=== PATIENT | male | born 1975 | race Caucasian/White ===

== ENCOUNTER 2020-12-16 16:29 | Inpatient (IN) ==
--- NOTE | 2020-12-16 16:44 | Emergency Department Note ---
Impression & Plan Pulmonary embolism, DVT (deep venous thrombosis) ED Provider Note NAME: REJI HARRSION AGE: 45 SEX: M : 1975 ARRIVES VIA: Ambulance INFORMANT: Patient, ED PROVIDER(S): Tyshawn Pete DO CHIEF COMPLAINT: Leg pain HPI: The patient is a 45-year-old male who presented to the emergency department for an evaluation of leg pain. The patient has a history of venous thromboembolic disease. He is currently taking blood thinners for clots in his lungs as well as in his legs. He started having leg pain throughout the day today. He describes episodes of tingling and numbness in the left leg as well as pain. He denies having any chest pain. He denies having any nausea or vomiting. He has a history of chronic back pain and states that this is no different compared to usual. The patient is currently at [facility] for inpati ent rehab. He started telling the staff at [facility] today that he was having the symptoms. He thought he was going to be evaluated by the physician at [facility] but then was sent to the emergency department instead. The patient states his symptoms are intermittent. He currently does have numbness in the leg. He denies having any weakness in the leg. He denies having any headache. ROS: See above HPI for pertinent positives & negatives. A total of 10 systems reviewed and were otherwise negative. PAST MEDICAL HISTORY: See Below PAST SURGICAL HISTORY: See Below FAMILY HISTORY: See Below SOCIAL HISTORY: See Below HOME MEDICATIONS: See Below ALLERGIES: See Below VITALS: See Below PHYSICAL EXAMINATION: GENERAL: Patient is awake alert in no acute distress patient is resting comfortably and showing no signs of anxiety EYES: The conjunctivae are clear. The pupils are round and reactive. EARS, NOSE, MOUTH AND THROAT: The nose is without any evidence of any deformity. Mucous membranes are moist. Tongue is midline. NECK: The neck is nontender and supple. RESPIRATORY: Normal respiratory effort is noted there is no evidence of wheezing rhonchi or rales CARDIOVASCULAR: Regular rate and rhythm noted there no murmurs rubs or gallops normal S1 normal S2. GASTROINTESTINAL: The abdomen is soft. Abdomen is nontender. MUSCULOSKELETAL/EXTREMITIES: There is no evidence of gross deformity full range of motion is noted in the hips and shoulders. SKIN: Skin is warm and dry. Pulses are symmetric in both feet. NEUROLOGIC: Patient is awake alert and oriented x3 strength is symmetric patellar reflexes are 2+ bilaterally MEDICAL DECISION MAKING: The patient is a 45-year-old male who presented to the emergency department by ambulance for an evaluation of leg pain. The patient's been describing leg numbness and pain which began over the last few days. The patient has a history of DVT. He had thrombectomy in the same leg recently. The patient had some skin changes in the leg but no significant swelling. Doppler was positive for a very extensive DVT through the entire left leg. The patient does currently take oral anticoagulation for DVT as well as pulmonary embolism. He started to have low blood pressure. For this reason CT the chest was obtained. The patient was treated with IV fluids as well as IV heparin. He was reevaluated multiple times. I discussed the patient's laboratory and radiographic studies with him. I also discussed his case with the on-call [facility] hospitalist group. Th ey have agreed to evaluate the patient in the emergency department for further management and disposition. Triage Nursing notes reviewed. Prior medical records reviewed Vital Signs: reviewed and remarkable for hypotension. Differential diagnosis: DVT, musculoskeletal, infection, joint effusion, trauma, lymphedema, idiopathic, CHF, as well as other pathologies. ER treatment provided: See below Diagnostics interpreted by me: ECG: EKG was obtained in the emergency department. My interpretation is normal sinus rhythm at 82 bpm. There was no ectopy. There was no acute ST segment abnormalities noted. Poor R wave progression was noted with anterior and apical T wave inversions. No previous tracing was available. Cardiac Monitoring: An order was placed for continuous cardiac monitoring. The monitor shows a rate of 86 bpm with sinus rhythm. Laboratory studies: As stated above and show below. Imaging studies: See below Consultation(s): I discussed this case with Dr. Smith who is on-call for the [facility] hospitalist group. ED COURSE: Procedures: none PDMP:reviewed and no issues Critical Care: I have personally spent greater than 60 minutes of critical care time in the direct management of this patient. This includes bedside care, interpretation of diagnostic studies, and testing, discussion with consultants, patient, and family members, and other required patient management activities. This 60 minutes is in excess of all separately billable procedures. Past Med/Surg History Medical History (Updated 12/17/20 @ 18:05 by Tyshawn Pete DO) Chronic low back pain DVT (deep venous thrombosis) History of seizures Peripheral vascular disease Pulmonary embolism Surgical History History of hernia repair Social History Smoking Status: Former smoker Hx Alcohol Use: Yes Hx Substance Use: Yes Current Living Situation: Alone Feels Safe at Home: Yes Allergies Allergies Allergy/AdvReac Type Severity Reaction Status Date / Time No Known Allergies Allergy Unverified 12/16/20 20:28 Home Meds Home Medications Medication Instructions Recorded Confirmed acetaminophen [Tylenol] 650 mg PO Q4 PRN 12/16/20 12/16/20 apixaban [Eliquis] 5 mg PO Q12 12/16/20 12/16/20 atorvastatin 40 mg PO DAILY 12/16/20 12/16/20 clopidogrel [Plavix] 75 mg PO DAILY 12/16/20 12/16/20 docusate sodium 100 mg PO BID 12/16/20 12/16/20 duloxetine 20 mg PO DAILY 12/16/20 12/16/20 famotidine 20 mg PO DAILY 12/16/20 12/16/20 folic acid 1 mg PO DAILY 12/16/20 12/16/20 furosemide [Lasix] 20 mg PO DAILY PRN 12/16/20 12/16/20 gabapentin 300 mg PO TID 12/16/20 12/16/20 levetiracetam 500 mg PO Q12H 12/16/20 12/16/20 lidocaine [Lidoderm] 1 patch TOPICAL DAILY 12/16/20 12/16/20 magnesium hydroxide [Milk of 30 ml PO DAILY PRN 12/16/20 12/16/20 Magnesia] metoprolol succinate 25 mg PO DAILY 12/16/20 12/16/20 morphine 10 mg PO Q4H PRN 12/16/20 12/16/20 morphine 15 mg PO Q12 12/16/20 12/16/20 nicotine 1 patch TRANSDERMAL DAILY 12/16/20 12/16/20 pantoprazole 40 mg PO DAILY 12/16/20 12/16/20 polyethylene glycol 3350 [Miralax] 17 g PO DAILY PRN 12/16/20 12/16/20 sennosides-docusate sodium 1 tab-cap PO DAILY PRN 12/16/20 12/16/20 [Senokot-S] thiamine HCl (vitamin B1) 100 mg PO DAILY 12/16/20 12/16/20 Results & Data (ED) Vital Signs Vital Signs - 24 hr 12/16/20 18:30 12/16/20 19:05 12/16/20 19:06 Pulse Rate 85 98 H 92 H Pulse Rate from SpO2 Sensor 83 98 H 92 H Respiratory Rate 28 H 15 Blood Pressure 100/72 Blood Pressure Mean 81 Pulse Oximetry 98 100 100 Oxygen Delivery Method Room Air Room Air 12/16/20 19:30 12/16/20 20:00 12/16/20 20:30 Pulse Rate 94 H Pulse Rate from SpO2 Sensor 94 H 88 Respiratory Rate 26 H Blood Pressure 88/62 L Blood Pressure Mean 70 Pulse Oximetry 96 95 Oxygen Delivery Method 12/16/20 21:00 12/16/20 21:34 Pulse Rate Pulse Rate from SpO2 Sensor 90 93 H Respiratory Rate Blood Pressure 111/83 Blood Pressure Mean 92 Pulse Oximetry 98 100 Oxygen Delivery Method Room Air Home Medications Current Medication List: was personally reviewed by me Laboratory Data Attestation: I reviewed the patient's lab results. Result diagrams: 12/17/20 10:22 12/16/20 17:16 Lab Results 12/16/20 12/16/20 12/16/20 Range/Units 17:16 17:16 17:16 WBC 7.08 (4.8-10.8) K/uL RBC 4.15 L (4.7-6.1) M/uL Hgb 11.8 L (14.0-18.0) g/dL Hct 36.1 L (42-52) % MCV 87.0 (80-100) fL MCH 28.4 (25-34) pg MCHC 32.7 (32-36) g/dL RDW Std Deviation 51.2 H (36.4-46.3) fL RDW Coeff of Megan 15.9 H (11.5-14.5) % Plt Count 404 H (130-400) K/uL MPV 9.9 (7.4-10.4) fL Immature Gran % (Auto) 0.1 % Neut % (Auto) 48.6 % Lymph % (Auto) 39.1 % Sherman % (Auto) 7.1 % Eos % (Auto) 4.4 % Baso % (Auto) 0.7 % Neut # (Auto) 3.44 (1.4-6.5) K/uL Lymph # (Auto) 2.77 (1.2-3.4) K/uL Sherman # (Auto) 0.50 (0.11-0.59) K/uL Eos # (Auto) 0.31 (0-0.5) K/uL Baso # (Auto) 0.05 (0-0.2) K/uL Immature Gran # (Auto) 0.01 (0.00-0.02) K/uL PT 11.1 (9.0-12.0) Seconds INR 1.1 (0.9-1.1) APTT 28.2 (21.0-31.0) Seconds PTT Ratio 1.1 Sodium 137 (136-145) mmol/L Potassium 4.3 (3.5-5.1) mmol/L Chloride 101 (98-107) mmol/L Carbon Dioxide 32 (21-32) mmol/L Anion Gap 4.0 (3-11) BUN 19 H (7-18) mg/dl Creatinine 0.93 (0.6-1.4) mg/dl Est Cr Clr Drug Dosing 108.9 ml/min Est GFR ( Amer) 113.7 ml/min Est GFR (Non-Af Amer) 98.1 ml/min BUN/Creatinine Ratio 20.6 H (10-20) Glucose 87 (70-99) mg/dl Calcium 9.1 (8.5-10.1) mg/dl Total Bilirubin 0.4 (0.2-1) mg/dl AST 23 (15-37) U/L ALT 36 (12-78) U/L Alkaline Phosphatase 128 H (45-117) U/L Troponin I 0.606 H* (0-0.045) ng/ml Total Protein 8.3 H (6.4-8.2) gm/dl Albumin 3.3 L (3.4-5.0) gm/dl Globulin 5.0 H (2.5-4.0) gm/dl Albumin/Globulin Ratio 0.7 L (0.9-2) Lipase 166 (73-393) U/L COVID-19 Eval Order SARS-CoV-2 (PCR) (Negative) 12/16/20 12/16/20 Range/Units 19:11 19:11 WBC (4.8-10.8) K/uL RBC (4.7-6.1) M/uL Hgb (14.0-18.0) g/dL Hct (42-52) % MCV (80-100) fL MCH (25-34) pg MCHC (32-36) g/dL RDW Std Deviation (36.4-46.3) fL RDW Coeff of Megan (11.5-14.5) % Plt Count (130-400) K/uL MPV (7.4-10.4) fL Immature Gran % (Auto) % Neut % (Auto) % Lymph % (Auto) % Sherman % (Auto) % Eos % (Auto) % Baso % (Auto) % Neut # (Auto) (1.4-6.5) K/uL Lymph # (Auto) (1.2-3.4) K/uL Sherman # (Auto) (0.11-0.59) K/uL Eos # (Auto) (0-0.5) K/uL Baso # (Auto) (0-0.2) K/uL Immature Gran # (Auto) (0.00-0.02) K/uL PT (9.0-12.0) Seconds INR (0.9-1.1) APTT (21.0-31.0) Seconds PTT Ratio Sodium (136-145) mmol/L Potassium (3.5-5.1) mmol/L Chloride (98-107) mmol/L Carbon Dioxide (21-32) mmol/L Anion Gap (3-11) BUN (7-18) mg/dl Creatinine (0.6-1.4) mg/dl Est Cr Clr Drug Dosing ml/min Est GFR ( Amer) ml/min Est GFR (Non-Af Amer) ml/min BUN/Creatinine Ratio (10-20) Glucose (70-99) mg/dl Calcium (8.5-10.1) mg/dl Total Bilirubin (0.2-1) mg/dl AST (15-37) U/L ALT (12-78) U/L Alkaline Phosphatase (45-117) U/L Troponin I (0-0.045) ng/ml Total Protein (6.4-8.2) gm/dl Albumin (3.4-5.0) gm/dl Globulin (2.5-4.0) gm/dl Albumin/Globulin Ratio (0.9-2) Lipase (73-393) U/L COVID-19 Eval Order Covid19 at [facility] SARS-CoV-2 (PCR) POSITIVE A* (Negative) Administered Medications Atorvastatin Calcium (Atorvastatin 40 Mg Tab) 40 mg PO DAILY TAVO Stop: 01/16/21 08:59 Last Admin: 12/17/20 08:16 Dose: 40 mg Documented by: [id number] Clopidogrel Bisulfate (Clopidogrel Bisulfate 75 Mg Tab) 75 mg PO DAILY TAVO Stop: 01/16/21 08:59 Last Admin: 12/17/20 08:15 Dose: 75 mg Documented by: [id number] Dexamethasone (Dexamethasone 4 Mg Tab) 6 mg PO QAM TAVO Stop: 12/26/20 09:01 Last Admin: 12/17/20 09:49 Dose: 6 mg Documented by: [id number] Docusate Sodium (Docusate Sodium 100 Mg Cap) 100 mg PO BID TAVO Stop: 01/16/21 08:59 Last Admin: 12/17/20 08:15 Dose: 100 mg Documented by: [id number] Duloxetine HCl (Duloxetine Hcl 20 Mg Cap) 20 mg PO DAILY TAVO Stop: 01/16/21 08:59 Last Admin: 12/17/20 08:15 Dose: 20 mg Documented by: [id number] Famotidine (Famotidine 20 Mg Tab) 20 mg PO DAILY TAVO Stop: 01/16/21 08:59 Last Admin: 12/17/20 08:15 Dose: 20 mg Documented by: [id number] Folic Acid (Folic Acid 1 Mg Tab) 1 mg PO DAILY TAVO Stop: 01/16/21 08:59 Last Admin: 12/17/20 08:15 Dose: 1 mg Documented by: [id number] Gabapentin (Gabapentin 300 Mg Cap) 300 mg PO TID TAVO Stop: 01/16/21 08:59 Last Admin: 12/17/20 14:27 Dose: 300 mg Documented by: [id number] Admin: 12/17/20 08:15 Dose: 300 mg Documented by: [id number] Heparin Sodium/Dextrose (Heparin Sodium/Dextrose) 25,000 units in 500 mls @ 32 mls/hr IV .[id number] TAVO; Protocol Stop: 01/15/21 18:06 Last Admin: 12/17/20 12:17 Dose: 1,600 units/hr, 32 mls/hr Documented by: [id number] Cosigned by: [id number] Titration: 12/17/20 12:15 Dose: 1,600 units/hr, 32 mls/hr Documented by: [id number] Cosigned by: [id number] Titration: 12/17/20 12:14 Dose: 1,600 units/hr, 32 mls/hr Documented by: [id number] Cosigned by: [id number] Titration: 12/17/20 02:10 Dose: 1,500 units/hr, 30 mls/hr Documented by: [id number] Cosigned by: [id number] Admin: 12/16/20 19:06 Dose: 1,400 units/hr, 28 mls/hr Documented by: [id number] Cosigned by: [id number] Ceftriaxone Sodium 2,000 mg/ (Dextrose) 70 mls @ 100 mls/hr IV DAILY TAVO; Protocol Stop: 12/24/20 09:29 Last Infusion: 12/17/20 10:33 Dose: 0 mls/hr Documented by: [id number] Admin: 12/17/20 09:50 Dose: 100 mls/hr Documented by: [id number] Levetiracetam (Levetiracetam 500 Mg Tab) 500 mg PO Q12 [facility] Stop: 01/16/21 00:15 Last Admin: 12/17/20 08:15 Dose: 500 mg Documented by: [id number] Admin: 12/17/20 01:09 Dose: 500 mg Documented by: [id number] Metoprolol Succinate (Metoprolol Succ 25mg Ext Rel Tab) 25 mg PO DAILY TAVO Stop: 01/16/21 08:59 Last Admin: 12/17/20 08:16 Dose: Not Given Documented by: [id number] Miscellaneous (Remove Nicoderm Patch) 1 ea N/A QAM [facility] Stop: 01/16/21 08:59 Last Admin: 12/17/20 08:16 Dose: 1 ea Documented by: [id number] Morphine Sulfate (Morphine Sulfate Cr 15 Mg Tabcr) 15 mg PO Q12 TAVO Stop: 12/31/20 08:59 Last Admin: 12/17/20 08:15 Dose: 15 mg Documented by: [id number] Morphine Sulfate (Morphine Sulfate 2 Mg/Ml Carp) 2 mg IV Q4H PRN PRN Reason: Pain Stop: 12/31/20 00:15 Last Admin: 12/17/20 14:28 Dose: 2 mg Documented by: [id number] Admin: 12/17/20 09:49 Dose: 2 mg Documented by: [id number] Nicotine (Nicotine 14 Mg/24 Hr Patch) 14 mg TD DAILY TAVO Stop: 01/16/21 08:59 Last Admin: 12/17/20 08:16 Dose: 14 mg Documented by: [id number] Pantoprazole Sodium (Pantoprazole 40 Mg Tab) 40 mg PO DAILY TAVO Stop: 01/16/21 08:59 Last Admin: 12/17/20 08:16 Dose: 40 mg Documented by: [id number] Thiamine HCl (Thiamine Hcl 100 Mg Tab) 100 mg PO DAILY TAVO Stop: 01/16/21 08:59 Last Admin: 12/17/20 08:16 Dose: 100 mg Documented by: [id number] Discontinued Medications Azithromycin (Azithromycin 250 Mg Tab) 500 mg PO NOW ONE Stop: 12/17/20 09:00 Last Admin: 12/17/20 09:49 Dose: 500 mg Documented by: [id number] Heparin Sodium (Porcine) (Heparin Sod (Porcine) 1000 Unit/Ml) 1 units IV NOW ONE Stop: 12/16/20 18:08 Last Admin: 12/16/20 19:06 Dose: 5,000 units Documented by: [id number] Cosigned by: [id number] Heparin Sodium/Dextrose (Heparin Iv Adult Wt-Based Standard With Bolus Protocol) 1 ea IV NOW STA; Protocol Stop: 12/16/20 17:53 Last Admin: 12/16/20 19:09 Dose: 1 ea Documented by: [id number] Sodium Chloride (Nss 1000ml) 500 mls @ 999 mls/hr IV .Q31M ONE Stop: 12/16/20 18:22 Last Infusion: 12/16/20 19:40 Dose: 0 mls/hr Documented by: [id number] Admin: 12/16/20 19:09 Dose: 999 mls/hr Documented by: [id number] Sodium Chloride (Nss 1000ml) 1,000 mls @ 999 mls/hr IV .Q1H1M ONE Stop: 12/16/20 20:47 Last Infusion: 12/16/20 20:53 Dose: 0 mls/hr Documented by: [id number] Admin: 12/16/20 19:52 Dose: 999 mls/hr Documented by: [id number] Sodium Chloride (Nss 1000ml) 500 mls @ 999 mls/hr IV .Q31M ONE Stop: 12/17/20 04:01 Last Infusion: 12/17/20 04:28 Dose: 0 mls/hr Documented by: [id number] Admin: 12/17/20 03:43 Dose: 999 mls/hr Documented by: [id number] Parenteral Electrolytes (Normosol-R) 1,000 mls @ 999 mls/hr IV .Q1H1M ONE Stop: 12/17/20 10:15 Last Infusion: 12/17/20 10:54 Dose: 0 mls/hr Documented by: [id number] Admin: 12/17/20 09:50 Dose: 999 mls/hr Documented by: [id number] Ioversol (Optiray 320 125ml) 119 ml IV ONCE ONE Stop: 12/16/20 18:48 Last Admin: 12/16/20 18:48 Dose: 119 ml Documented by: [id number] Ketorolac Tromethamine (Ketorolac Tromethamine 15 Mg/Ml Vial) 15 mg IV NOW ONE Stop: 12/16/20 21:57 Last Admin: 12/16/20 22:06 Dose: 15 mg Documented by: [id number] Discharge Plan Visit Data Chief Complaint: Leg Injury/Pain ED Provider: Tyshawn Pete Discharge Problem: Pulmonary embolism, DVT (deep venous thrombosis) Patient Disposition: Admitted As Inpatient Condition: Good Discharge Instructions Interventions: ED Discharge Assessment Last Done: 12/16/20 22:58 Discharge Problem: Pulmonary embolism Qualifiers: Pulmonary embolism type: unspecified Chronicity: acute Acute cor pulmonale presence: unspecified Qualified Code(s): I26.99 - Other pulmonary embolism without acute cor pulmonale DVT (deep venous thrombosis) Qualifiers: DVT location: lower extremity Affected thrombotic vein of extremity: unspecified vein of extremity Chronicity: acute Laterality: left Qualified Code(s): I82.402 - Acute embolism and thrombosis of unspecified deep veins of left lower extremity
--- NOTE | 2020-12-16 17:19 | XRay Report ---
SINGLE VIEW CHEST CLINICAL HISTORY: Atypical chest pain. FINDINGS: 2 AP, portable, upright chest radiographs are obtained. No prior studies are available for comparison at the time of dictation. The examination is degraded by portable technique and patient ro tation. The cardiac silhouette appears enlarged. There is pulmonary vascular congestion. The patchy a irspace opacities are seen throughout both lungs. No large pleural effusion or pneumothorax is seen. The bony thorax is grossly intact. IMPRESSION: 1. The cardiac silhouette appears enlarged and there is pulmonary vascular congestion. 2. Patchy airspace opacities are seen throughout both lungs. This could represent pulmonary edema and /or multifocal pneumonia. Clinical correlation will be essential. Radiographic follow-up to resolutio n is recommended. ACT 112: Negative or not required by law. Electronically signed by: Angelo Chacko M.D. 12/16/2020 5:18 PM
[2020-12-16 17:21] LABS: Basophils # (auto) 0.05 K/uL (0-0.2); Basophils % (auto) 0.7 %; Eosinophils # (auto) 0.31 K/uL (0-0.5); Eosinophils % (auto) 4.4 %; Hematocrit (blood only) 36.1 % (42-52); Hemoglobin 11.8 g/dL (14.0-18.0); Immature Granulocytes # (auto) 0.01 K/uL (0.00-0.02); Immature Granulocytes % (auto) 0.1 %; Lymphocytes # (auto) 2.77 K/uL (1.2-3.4); Lymphocytes % (auto) 39.1 %; Mean Corpuscular Hemoglobin 28.4 pg (25-34); Mean Corpuscular Hgb Conc 32.7 g/dL (32-36); Mean Platelet Volume 9.9 fL (7.4-10.4); Monocytes % (auto) 7.1 %; Neutrophils # (auto) 3.44 K/uL (1.4-6.5); Neutrophils % (auto) 48.6 %; Platelet Count 404 K/uL (130-400); RDW Coefficient of Variation 15.9 % (11.5-14.5); RDW Standard Deviation 51.2 fL (36.4-46.3); Red Blood Count 4.15 M/uL (4.7-6.1); White Blood Count 7.08 K/uL (4.8-10.8)
[2020-12-16 17:40] LABS: Albumin Level 3.3 gm/dl (3.4-5.0); BUN Creatinine Ratio 20.6 (10-20); Calcium 9.1 mg/dl (8.5-10.1); Creatinine Clr Calc Pharmacy 108.9 ml/min; Est GFR (African American) 113.7 ml/min; Est GFR (Non-African American) 98.1 ml/min; Potassium 4.3 mmol/L (3.5-5.1)
[2020-12-16 17:44] LABS: INR 1.1 (0.9-1.1); Partial Thromboplastin Ratio 1.1; Partial Thromboplastin Time 28.2 Seconds (21.0-31.0); Prothrombin Time 11.1 Seconds (9.0-12.0)
--- NOTE | 2020-12-16 17:44 | Ultrasound Report ---
ULTRASOUND LEFT LOWER EXTREMITY VENOUS CLINICAL HISTORY: Left leg pain. COMPARISON STUDY: No priors. TECHNIQUE: Real-time, grayscale, and color Doppler sonography of the deep veins of the left lower ext remity was performed from the inguinal crease to the calf. Compression and augmentation were utilized . FINDINGS: There is occlusive deep venous thrombosis seen extending from the proximal left superficial femoral vein distally to the calf. The common femoral vein is patent and normally compressible. The greater saphenous vein and the profunda femoris vein at the junction with the common femoral vein are clear. IMPRESSION: Extensive and occlusive deep venous thrombosis is seen throughout the left lower extremit y is above. ACT 112: Negative or not required by law. Electronically signed by: Angelo Chacko M.D. 12/16/2020 5:43 PM
[2020-12-16 17:46] LABS: Albumin Globulin Ratio 0.7 (0.9-2); Bilirubin,Total 0.4 mg/dl (0.2-1); Total Protein 8.3 gm/dl (6.4-8.2); Troponin I 0.606 ng/ml (0-0.045)
[2020-12-16] MEDS ORDERED: Heparin IV Adult Wt-Based Standard WITH Bolus Protocol IV STA (17:52)
[2020-12-16] MEDS ORDERED: SODIUM CHLORIDE 0.9% 1000ML 500 ML IV ONE (17:52)
[2020-12-16] MEDS ORDERED: HEPARIN SOD (PORCINE) 1000 UNIT/ML IV ONE (18:07)
[2020-12-16] MEDS ORDERED: OPTIRAY 320 125ml IV ONE (18:47)
[2020-12-16] MEDS: HEPARIN SODIUM/DEXTROSE 25,000 UNITS/500 ML BAG IV SCH (19:06)
--- NOTE | 2020-12-16 19:38 | CT Scan Report ---
CT ANGIOGRAM OF THE CHEST CLINICAL HISTORY: Dyspnea. COMPARISON STUDY: Chest x-ray dated 12/16/2020. TECHNIQUE: Following the IV administration of 119 cc of Optiray 320, CT angiogram of the chest was pe rformed from the upper abdomen to the thoracic inlet utilizing the pulmonary embolus protocol. Images are reviewed in the axial, sagittal, and coronal planes. 3-D MIPS images are created and assessed. I V contrast was administered without complication. A dose lowering technique was utilized adhering to the principles of ALARA. CT DOSE: 739.05 mGy.cm FINDINGS: Thyroid: Imaged portions of the thyroid gland are normal in size and attenuation. Thoracic aorta: The thoracic aorta is normal in caliber and demonstrates standard 3-vessel arch anato my. The thoracic aorta is not well opacified. Pulmonary vasculature: The pulmonary trunk is normal in caliber. There is extensive thrombus within t he right lower lobe pulmonary artery. This extends into segmental and subsegmental branches. Signific ant segmental and subsegmental pulmonary emboli are seen within branches of the left upper lobe pulmo nary artery. Segmental and subsegmental pulmonary emboli are seen within branches of the left lower l obe pulmonary artery. Heart: The heart is enlarged and without pericardial effusion. A left coronary artery stent is in rolf ce. Lungs and pleural spaces: Evaluation of the lung parenchyma is significantly degraded by motion artif act. The trachea and central airways are clear. No pleural effusion is identified. There is diffuse i ntralobular septal thickening. There are foci of nodular subpleural airspace consolidation seen throu ghout both lungs. Mediastinum: There is mediastinal lymphadenopathy. Prevascular nodes measure up to 13 mm in short axi s. Francisca: There is hilar adenopathy. Hilar nodes measure up to 13 mm in short axis. Axillae: There is no axillary lymphadenopathy. Upper abdomen: Partially visualized upper abdominal viscera is within normal limits. Skeletal structures: No lytic or blastic bony lesions are seen. Advanced arthritic change is noted in the shoulders. IMPRESSION: 1. Extensive bilateral pulmonary emboli as above, greatest in the right lower lobe pulmonary artery. 2. Cardiomegaly with evidence of congestive failure. 3. There are numerous foci of nodular subpleural consolidation scattered throughout both lungs. These are indeterminant, and several likely represent pulmonary infarcts given the degree of thrombus. Cor relate clinically for evidence of an infectious/inflammatory pneumonitis. A follow-up chest [facility] is recommended to document resolution and to exclude underlying pulmonary lesion. 4. No pleural effusion is identified. 5. Mediastinal and hilar lymphadenopathy is nonspecific and may be reactive. This can also be reasses sed at follow-up. ACT 112: Positive. There are findings on this exam that require communication between the performing entity and the patient following Patient Test Result Information Act ([place] Act 112) guidelines. Electronically signed by: Angelo Chacko M.D. 12/16/2020 7:37 PM
[2020-12-16] MEDS ORDERED: SODIUM CHLORIDE 0.9% 1000ML 1,000 ML IV ONE (19:47)
--- NOTE | 2020-12-16 21:50 | History & Physical Report ---
Date of Service December 16, 2020 Assessment & Plan (1) COVID-19: Patient with positive Covid-19 test today. He denies CP, SOB, cough, fever. He reports being tested at [facility] yesterday and was NEGATIVE at that time. He is not vaccinated by choice. Adequate oxygenation on room air. CTA wtih nodular subpleural consolidations possibly secondary to Covid. -Admit to medical -Maintain isolation precuations - airborne and contact -No need for Dexamethasone or Remdesivir at this time as patient is not hypoxic -Heparin gtt as below Present on Admission?: Yes (2) Pulmonary embolism: Patient with acute bilateral PEs. HD stable. Saturating 94% on room air at present. Occurred while on Eliquis - patient reports taking his medications as prescribed. Eliquis failure. Patient with prior VTE - ?hypercoagulability -Will check Factor V, Prothrombin, Homocysteine, Protein C/S and Anti-thrombin III -Heparin gtt -Tylenol PRN pain -Morphine PRN pain -Colace PRN Present on Admission?: Yes (3) DVT (deep venous thrombosis): Acute extensive DVT of LLE while on Eliquis -Management as above - Heparin gtt, Hypercoag workup -If pain and tingling continue may consider Vascular evaluation for thrombectomy -Request records from [place] of prior hospital stay Present on Admission?: Yes (4) Elevated troponin: ?if secondary to Covid vs PE, doubt ACS. Patient does have some pleuritic chest pain with his current PEs. -Continue to trend troponin -Heparin gtt as above -Continue Plavix Present on Admission?: Yes (5) Peripheral vascular disease: Chronic. Patient states that he has stents in place -Continue Plavix, Atorvastatin Present on Admission?: Yes (6) History of seizures: Chronic. Seizure free -Continue Keppra Present on Admission?: Yes History of Present Illness Chief Complaint: LLE pain, chest pain Primary Care Provider: CYNTHIA REEVES Dmitry Puente is a 45yo male with history of prior DVT, Seizures and PE presenting with extensive LLE DVT and bilateral PEs. Patient has a history of prior DVT and PE - presently on Eliquis anticoagulation. He has been at [facility] for rehab. He developed pain and tingling in the LLE and was sent to the ER. Patient states that he had a thrombectomy performed at [place] [facility] 2 weeks ago. Has multiple clots in the past. Has IVC filter in place. No known family history of blood clots. No prior hypercoag workup to his knowledge ER Course: Heparin gtt, NSS Allergies Allergy/AdvReac Type Severity Reaction Status Date / Time No Known Allergies Allergy Unverified 12/16/20 20:28 Home Medications Medication Instructions Recorded Confirmed Type acetaminophen [Tylenol] 650 mg PO Q4 PRN 12/16/20 12/16/20 History apixaban [Eliquis] 5 mg PO Q12 12/16/20 12/16/20 History atorvastatin 40 mg PO DAILY 12/16/20 12/16/20 History clopidogrel [Plavix] 75 mg PO DAILY 12/16/20 12/16/20 History docusate sodium 100 mg PO BID 12/16/20 12/16/20 History duloxetine 20 mg PO DAILY 12/16/20 12/16/20 History famotidine 20 mg PO DAILY 12/16/20 12/16/20 History folic acid 1 mg PO DAILY 12/16/20 12/16/20 History furosemide [Lasix] 20 mg PO DAILY PRN 12/16/20 12/16/20 History gabapentin 300 mg PO TID 12/16/20 12/16/20 History levetiracetam 500 mg PO Q12H 12/16/20 12/16/20 History lidocaine [Lidoderm] 1 patch TOPICAL DAILY 12/16/20 12/16/20 History magnesium hydroxide [Milk of 30 ml PO DAILY PRN 12/16/20 12/16/20 History Magnesia] metoprolol succinate 25 mg PO DAILY 12/16/20 12/16/20 History morphine 10 mg PO Q4H PRN 12/16/20 12/16/20 History morphine 15 mg PO Q12 12/16/20 12/16/20 History nicotine 1 patch TRANSDERMAL DAILY 12/16/20 12/16/20 History pantoprazole 40 mg PO DAILY 12/16/20 12/16/20 History polyethylene glycol 3350 [Miralax] 17 g PO DAILY PRN 12/16/20 12/16/20 History sennosides-docusate sodium 1 tab-cap PO DAILY PRN 12/16/20 12/16/20 History [Senokot-S] thiamine HCl (vitamin B1) 100 mg PO DAILY 12/16/20 12/16/20 History Past Med/Surg History Medical History Chronic low back pain DVT (deep venous thrombosis) History of seizures Pulmonary embolism Surgical History History of hernia repair Social History Smoking Status: Former smoker Hx Alcohol Use: Yes Hx Substance Use: Yes Current Living Situation: Alone Feels Safe at Home: Yes Review of Systems Review of Systems: All systems reviewed & are unremarkable except as noted in HPI & below Physical Exam Physical Exam: General: patient resting comfortably, NAD, non-toxic in appearance, AA&O x 4 Skin: warm, dry, intact, no rashes or lesions HEENT: NC/AT, PERRL, EOMI, anicteric sclera, conjunctiva without injection, external ear normal to inspection and nontender, nares patent, moist mucus membranes, dentition intact, no oropharyngeal lesions, neck supple, trachea midline, no LAD, no thyromegaly, no JVD Heart: +S1/S2, regular, no m/r/g Lungs: equal air entry bilaterally, no rales/rhonchi/wheezes Abd: +BS, soft, NT/ND, no masses/organomegaly/ascites Ext: warm, 2+ pulses in UE/LE bilaterally, no clubbing/cyanosis or edema, pain in LLE Neuro: nonfocal, patient AA&O x 4, speech intact, no facial droop, moving all extremities on command with equal strength 5/5 Results & Data Results & Data ([facility]) Vital Signs (Past 12 Hours) Vital Signs Temp Pulse Resp BP Pulse Ox 12/16/20 21:00 98 12/16/20 20:30 95 12/16/20 20:00 88/62 L 12/16/20 19:30 94 H 26 H 96 12/16/20 19:06 92 H 100/72 100 12/16/20 19:05 98 H 15 100 12/16/20 18:30 85 28 H 98 12/16/20 18:00 86 101/79 100 12/16/20 17:37 86 22 92/64 L 98 12/16/20 17:00 85 19 98 12/16/20 16:37 36.8 C 83 16 112/73 97 12/16/20 16:35 81 15 98 Laboratory Results Laboratory Results WBC 7.08 K/uL (4.8-10.8) 12/16/20 17:16 RBC 4.15 M/uL (4.7-6.1) L 12/16/20 17:16 Hgb 11.8 g/dL (14.0-18.0) L 12/16/20 17:16 Hct 36.1 % (42-52) L 12/16/20 17:16 MCV 87.0 fL (80-100) 12/16/20 17:16 MCH 28.4 pg (25-34) 12/16/20 17:16 MCHC 32.7 g/dL (32-36) 12/16/20 17:16 RDW Std Deviation 51.2 fL (36.4-46.3) H 12/16/20 17:16 RDW Coeff of Megan 15.9 % (11.5-14.5) H 12/16/20 17:16 Plt Count 404 K/uL (130-400) H 12/16/20 17:16 MPV 9.9 fL (7.4-10.4) 12/16/20 17:16 Immature Gran % (Auto) 0.1 % 12/16/20 17:16 Neut % (Auto) 48.6 % 12/16/20 17:16 Lymph % (Auto) 39.1 % 12/16/20 17:16 [place] % (Auto) 7.1 % 12/16/20 17:16 Eos % (Auto) 4.4 % 12/16/20 17:16 Baso % (Auto) 0.7 % 12/16/20 17:16 Neut # (Auto) 3.44 K/uL (1.4-6.5) 12/16/20 17:16 Lymph # (Auto) 2.77 K/uL (1.2-3.4) 12/16/20 17:16 [place] # (Auto) 0.50 K/uL (0.11-0.59) 12/16/20 17:16 Eos # (Auto) 0.31 K/uL (0-0.5) 12/16/20 17:16 Baso # (Auto) 0.05 K/uL (0-0.2) 12/16/20 17:16 Immature Gran # (Auto) 0.01 K/uL (0.00-0.02) 12/16/20 17:16 PT 11.1 Seconds (9.0-12.0) 12/16/20 17:16 INR 1.1 (0.9-1.1) 12/16/20 17:16 APTT 45.3 Seconds (21.0-31.0) H* 12/17/20 01:19 PTT Ratio 1.7 12/17/20 01:19 Sodium 137 mmol/L (136-145) 12/16/20 17:16 Potassium 4.3 mmol/L (3.5-5.1) 12/16/20 17:16 Chloride 101 mmol/L (98-107) 12/16/20 17:16 Carbon Dioxide 32 mmol/L (21-32) 12/16/20 17:16 Anion Gap 4.0 (3-11) 12/16/20 17:16 BUN 19 mg/dl (7-18) H 12/16/20 17:16 Creatinine 0.93 mg/dl (0.6-1.4) 12/16/20 17:16 Est Cr Clr Drug Dosing 108.9 ml/min 12/16/20 17:16 Est GFR ( Amer) 113.7 ml/min 12/16/20 17:16 Est GFR (Non-Af Amer) 98.1 ml/min 12/16/20 17:16 BUN/Creatinine Ratio 20.6 (10-20) H 12/16/20 17:16 Glucose 87 mg/dl (70-99) 12/16/20 17:16 Calcium 9.1 mg/dl (8.5-10.1) 12/16/20 17:16 Phosphorus 4.3 mg/dl (2.5-4.9) 12/17/20 01:19 Magnesium 2.0 mg/dl (1.8-2.4) 12/17/20 01:19 Total Bilirubin 0.4 mg/dl (0.2-1) 12/16/20 17:16 AST 23 U/L (15-37) 12/16/20 17:16 ALT 36 U/L (12-78) 12/16/20 17:16 Alkaline Phosphatase 128 U/L (45-117) H 12/16/20 17:16 Troponin I 0.599 ng/ml (0-0.045) H* 12/17/20 01:19 Total Protein 8.3 gm/dl (6.4-8.2) H 12/16/20 17:16 Albumin 3.3 gm/dl (3.4-5.0) L 12/16/20 17:16 Globulin 5.0 gm/dl (2.5-4.0) H 12/16/20 17:16 Albumin/Globulin Ratio 0.7 (0.9-2) L 12/16/20 17:16 Lipase 166 U/L (73-393) 12/16/20 17:16 COVID-19 Eval Order Covid19 at [facility] 12/16/20 19:11 SARS-CoV-2 (PCR) POSITIVE (Negative) A* 12/16/20 19:11 Impressions Chest X-Ray 12/16/20 16:44 SINGLE VIEW CHEST CLINICAL HISTORY: Atypical chest pain. FINDINGS: 2 AP, portable, upright chest radiographs are obtained. No prior studies are available for comparison at the time of dictation. The examination is degraded by portable technique and patient rotation. The cardiac silhouette appears enlarged. There is pulmonary vascular congestion. The patchy airspace opacities are seen throughout both lungs. No large pleural effusion or pneumothorax is seen. The bony thorax is grossly intact. IMPRESSION: 1. The cardiac silhouette appears enlarged and there is pulmonary vascular congestion. 2. Patchy airspace opacities are seen throughout both lungs. This could represent pulmonary edema and/or multifocal pneumonia. Clinical correlation will be essential. Radiographic follow-up to resolution is recommended. ACT 112: Negative or not required by law. Electronically signed by: Angelo Chacko M.D. 12/16/2020 5:18 PM Venous Doppler Study 12/16/20 16:48 ULTRASOUND LEFT LOWER EXTREMITY VENOUS CLINICAL HISTORY: Left leg pain. COMPARISON STUDY: No priors. TECHNIQUE: Real-time, grayscale, and color Doppler sonography of the deep veins of the left lower extremity was performed from the inguinal crease to the calf. Compression and augmentation were utilized. FINDINGS: There is occlusive deep venous thrombosis seen extending from the proximal left superficial femoral vein distally to the calf. The common femoral vein is patent and normally compressible. The greater saphenous vein and the profunda femoris vein at the junction with the common femoral vein are clear. IMPRESSION: Extensive and occlusive deep venous thrombosis is seen throughout the left lower extremity is above. ACT 112: Negative or not required by law. Electronically signed by: Angelo Chacko M.D. 12/16/2020 5:43 PM Chest CTA 12/16/20 17:46 CT ANGIOGRAM OF THE CHEST CLINICAL HISTORY: Dyspnea. COMPARISON STUDY: Chest x-ray dated 12/16/2020. TECHNIQUE: Following the IV administration of 119 cc of Optiray 320, CT angiogram of the chest was performed from the upper abdomen to the thoracic inlet utilizing the pulmonary embolus protocol. Images are reviewed in the axial, sagittal, and coronal planes. 3-D MIPS images are created and assessed. IV contrast was administered without complication. A dose lowering technique was utilized adhering to the principles of ALARA. CT DOSE: 739.05 mGy.cm FINDINGS: Thyroid: Imaged portions of the thyroid gland are normal in size and attenuation. Thoracic aorta: The thoracic aorta is normal in caliber and demonstrates standard 3-vessel arch anatomy. The thoracic aorta is not well opacified. Pulmonary vasculature: The pulmonary trunk is normal in caliber. There is extensive thrombus within the right lower lobe pulmonary artery. This extends into segmental and subsegmental branches. Significant segmental and subsegmental pulmonary emboli are seen within branches of the left upper lobe pulmonary artery. Segmental and subsegmental pulmonary emboli are seen within branches of the left lower lobe pulmonary artery. Heart: The heart is enlarged and without pericardial effusion. A left coronary artery stent is in place. Lungs and pleural spaces: Evaluation of the lung parenchyma is significantly degraded by motion artifact. The trachea and central airways are clear. No pleural effusion is identified. There is diffuse intralobular septal thickening. There are foci of nodular subpleural airspace consolidation seen throughout both lungs. Mediastinum: There is mediastinal lymphadenopathy. Prevascular nodes measure up to 13 mm in short axis. Francisca: There is hilar adenopathy. Hilar nodes measure up to 13 mm in short axis. Axillae: There is no axillary lymphadenopathy. Upper abdomen: Partially visualized upper abdominal viscera is within normal limits. Skeletal structures: No lytic or blastic bony lesions are seen. Advanced arthritic change is noted in the shoulders. IMPRESSION: 1. Extensive bilateral pulmonary emboli as above, greatest in the right lower lobe pulmonary artery. 2. Cardiomegaly with evidence of congestive failure. 3. There are numerous foci of nodular subpleural consolidation scattered throughout both lungs. These are indeterminant, and several likely represent pulmonary infarcts given the degree of thrombus. Correlate clinically for evidence of an infectious/inflammatory pneumonitis. A follow-up chest CT in 3 months time is recommended to document resolution and to exclude underlying pu lmonary lesion. 4. No pleural effusion is identified. 5. Mediastinal and hilar lymphadenopathy is nonspecific and may be reactive. This can also be reassessed at follow-up. ACT 112: Positive. There are findings on this exam that require communication between the performing entity and the patient following Patient Test Result Information Act ([place] Act 112) guidelines. Electronically signed by: Angelo Chacko M.D. 12/16/2020 7:37 PM ECG Additional Comments: EKG with NSR at 82, QF=382, QRS=92, GYa=076, TWI present in anterior leads, no STEMI Code Status & VTE Plan VTE Prophylaxis Plan VTE Prophylaxis will be ordered: Yes PG Care Time/CCT Total # of Minutes Spent Total Time Spent with Patient: Total time spent is greater than 50% in coordination of care (as documented) at patient's floor/unit and/or counseling patient: Coding Level of Care Code 71824 Initial Inpt Care Lvl 3 Diagnoses COVID-19 U07.1 Pulmonary embolism I26.99 Pulmonary embolism type: unspecified Chronicity: unspecified Acute cor pulmonale presence: unspecified DVT (deep venous thrombosis) I82.402 DVT location: lower extremity Affected thrombotic vein of extremity: unspecified vein of extremity Chronicity: acute Laterality: left Elevated troponin R77.8 Peripheral vascular disease I73.9 History of seizures Z87.898 (1) Pulmonary embolism Pulmonary embolism type: unspecified Chronicity: unspecified Acute cor pulmonale presence: unspecified Qualified Code(s): I26.99 - Other pulmonary embolism without acute cor pulmonale (2) DVT (deep venous thrombosis) DVT location: lower extremity Affected thrombotic vein of extremity: unspecified vein of extremity Chronicity: acute Laterality: left Qualified Code(s): I82.402 - Acute embolism and thrombosis of unspecified deep veins of left lower extremity
[2020-12-16] MEDS ORDERED: KETOROLAC TROMETHAMINE 15 MG/ML VIAL IV ONE (21:56)
[2020-12-17] MEDS ORDERED: ACETAMINOPHEN 325 MG TAB PO PRN (00:16)
[2020-12-17] MEDS ORDERED: ONDANSETRON INJ 2 MG/ML 2 ML VIAL IV PRN (00:16)
[2020-12-17] MEDS: levETIRAcetam 500 MG TAB PO SCH ×3 (01:09→19:35)
[2020-12-17 01:56] LABS: Partial Thromboplastin Ratio 1.7
[2020-12-17 02:01] LABS: Partial Thromboplastin Time 45.3 Seconds (21.0-31.0)
[2020-12-17 02:04] LABS: Phosphorus 4.3 mg/dl (2.5-4.9); Troponin I 0.599 ng/ml (0-0.045)
[2020-12-17] MEDS ORDERED: SODIUM CHLORIDE 0.9% 1000ML 500 ML IV ONE (03:31)
[2020-12-17] MEDS: FOLIC ACID 1 MG TAB PO SCH (08:15)
[2020-12-17] MEDS: FAMOTIDINE 20 MG TAB PO SCH (08:15)
[2020-12-17] MEDS: DOCUSATE SODIUM 100 MG CAP PO SCH ×2 (08:15→19:35)
[2020-12-17] MEDS: CLOPIDOGREL BISULFATE 75 MG TAB PO SCH (08:15)
[2020-12-17] MEDS: GABAPENTIN 300 MG CAP PO SCH ×3 (08:15→19:35)
[2020-12-17] MEDS: MoRPHine SULFATE CR 15 MG TABCR PO SCH ×2 (08:15→19:31)
[2020-12-17] MEDS: DULoxetine HCL 20 MG CAP PO SCH (08:15)
[2020-12-17] MEDS: THIAMINE HCL 100 MG TAB PO SCH (08:16)
[2020-12-17] MEDS: PANTOprazole 40 MG TAB PO SCH (08:16)
[2020-12-17] MEDS: ATORVASTATIN 40 MG TAB PO SCH (08:16)
[2020-12-17] MEDS: METOPROLOL SUCC 25MG EXT REL TAB PO SCH (08:16)
[2020-12-17] MEDS: NICOTINE 14 MG/24 HR PATCH TD SCH (08:16)
--- NOTE | 2020-12-17 08:37 | Pulmonary Consultation ---
Date of Consultation December 17, 2020 Assessment & Plan (1) Pulmonary embolism: CT chest 12/16/2020 personally reviewed: Dense patchy opacities appreciated in bilateral upper lobes peripherally as well as right lower lobe. Pulmonary embolus is also appreciated bilateral lower more than the right lower pulmonary artery. Possible wedge infarct right lower lobe No right heart strain appreciated Groundglass opacities also appreciated bilaterally No mediastinal adenopathy --Acute PE Patient already has an IVC filter in place In a patient who was on apixaban and states that he is compliant with it I think this is failure of apixaban Patient is also COVID-19 positive which is also hypercoagulable state on top of the I think the next best step would be to have the patient on warfarin Hematology consult would be helpful to get their opinion 2D echo can be done to look at the right heart pressures, I personally did not see right heart strain on the CT chest Patient is not a candidate for systemic TPA --Patchy dense opacities bilateral upper and lower lobes Unusual to be seen in COVID-19 Right lower lobe could be from wedge infarct Recommend continuing antibiotics --COVID-19 pneumonia Patient was not hypoxic at the time of presentation If the patient does have developed hypoxia during the hospital stay I would recommend starting dexamethasone --Transient hypotension It seems patient most likely has low blood pressure to begin with He does not have any DAVID He does not have any symptoms when his blood pressure is on the lower side Recommend cortisol level Plan: Continue with heparin drip with bridge to warfarin O2 supplementation to keep oxygen saturation greater than 92 Continue with antibiotics Case was discussed with Brayden BORRERO and Dr. Beverly Pulmonary will follow peripherally. Please call directly with any questions. Please note the above document was generated using voice recognition software. It may contain grammatical, syntax or spelling errors.Any formal questions or concerns about the content, text or information contained within the body of this dictation should be directly addressed to the provider for clarification. Acute cor pulmonale presence: unspecified Chronicity: unspecified Pulmonary embolism type: unspecified Qualified Code(s): I26.99 - Other pulmonary embolism without acute cor pulmonale (2) DVT (deep venous thrombosis): Affected thrombotic vein of extremity: unspecified vein of extremity Chronicity: acute DVT location: lower extremity Laterality: left Qualified Code(s): I82.402 - Acute embolism and thrombosis of unspecified deep veins of left lower extremity (3) COVID-19: (4) Abnormal chest CT: History of Present Illness Attending Physician: Jas Beverly MD History of Present Illness 45-year-old male past medical history of DVT s/p IVC filter placement, coronary artery disease was admitted to the hospital because of tingling in the left lowe r extremity and pain. He was found to have acute PE and DVT Patient is on Eliquis for anticoagulation Pulmonary consulted for same Patient was in [facility] for rehab. He recently had a thrombectomy performed at [facility] approximately 2 weeks ago Patient was seen from the glass window. He was on the bed comfortable heart rate in the low 90s. Blood pressure 105/65. Not in acute distress As per the nurse patient saturation on room air is 96%. He prefers oxygen as he feels that it is helping his chest discomfort. Brief history was given to me by Dr. Beverly. History obtained from previous records and H&P. Allergies Allergy/AdvReac Type Severity Reaction Status Date / Time No Known Allergies Allergy Unverified 12/16/20 20:28 Home Medications Medication Instructions Recorded Confirmed Type acetaminophen [Tylenol] 650 mg PO Q4 PRN 12/16/20 12/16/20 History apixaban [Eliquis] 5 mg PO Q12 12/16/20 12/16/20 History atorvastatin 40 mg PO DAILY 12/16/20 12/16/20 History clopidogrel [Plavix] 75 mg PO DAILY 12/16/20 12/16/20 History docusate sodium 100 mg PO BID 12/16/20 12/16/20 History duloxetine 20 mg PO DAILY 12/16/20 12/16/20 History famotidine 20 mg PO DAILY 12/16/20 12/16/20 History folic acid 1 mg PO DAILY 12/16/20 12/16/20 History furosemide [Lasix] 20 mg PO DAILY PRN 12/16/20 12/16/20 History gabapentin 300 mg PO TID 12/16/20 12/16/20 History levetiracetam 500 mg PO Q12H 12/16/20 12/16/20 History lidocaine [Lidoderm] 1 patch TOPICAL DAILY 12/16/20 12/16/20 History magnesium hydroxide [Milk of 30 ml PO DAILY PRN 12/16/20 12/16/20 History Magnesia] metoprolol succinate 25 mg PO DAILY 12/16/20 12/16/20 History morphine 10 mg PO Q4H PRN 12/16/20 12/16/20 History morphine 15 mg PO Q12 12/16/20 12/16/20 History nicotine 1 patch TRANSDERMAL DAILY 12/16/20 12/16/20 History pantoprazole 40 mg PO DAILY 12/16/20 12/16/20 History polyethylene glycol 3350 [Miralax] 17 g PO DAILY PRN 12/16/20 12/16/20 History sennosides-docusate sodium 1 tab-cap PO DAILY PRN 12/16/20 12/16/20 History [Senokot-S] thiamine HCl (vitamin B1) 100 mg PO DAILY 12/16/20 12/16/20 History Patient History Medical History (Updated 12/17/20 @ 12:28 by Jas Beverly MD) Chronic low back pain DVT (deep venous thrombosis) History of seizures Peripheral vascular disease Pulmonary embolism Surgical History History of hernia repair Social History Smoking Status: Former smoker Hx Alcohol Use: Yes Hx Substance Use: Yes Current Living Situation: Alone Feels Safe at Home: Yes Review of Systems Review of Systems: Other Physical Exam Physical Exam: Patient not examined due to coronavirus restrictions and attem pts to minimize exposure to staff and consider PPE. Please refer to the hospitalist exam for complete details. Results & Data Results & Data ([facility]) Vital Signs (Past 12 Hours) Vital Signs Temp Pulse Resp BP BP Pulse Ox 12/17/20 07:31 36.5 C 83 18 90/60 L 96 12/17/20 03:34 37.1 C 73 18 87/64 L 91 12/17/20 00:25 36.5 C 16 103/71 94 12/16/20 23:00 108/74 95 12/16/20 22:30 95 12/16/20 22:00 109/85 96 12/16/20 21:34 111/83 100 12/16/20 21:00 98 12/16/20 17:16 12/16/20 17:16 PG Care Time/CCT Total # of Minutes Spent Total Time Spent with Patient: Total time spent is greater than 50% in coordination of care (as documented) at patient's floor/unit and/or counseling patient: Coding Level of Care Code 73606 Inpt Consult Level 3 Diagnoses Pulmonary embolism I26.99 Acute cor pulmonale presence: unspecified Chronicity: unspecified Pulmonary embolism type: unspecified DVT (deep venous thrombosis) I82.402 Affected thrombotic vein of extremity: unspecified vein of extremity Chronicity: acute DVT location: lower extremity Laterality: left COVID-[address] R93.89 Time Spent (min) 71
[2020-12-17] MEDS ORDERED: AZITHROMYCIN 250 MG TAB PO ONE (08:59)
[2020-12-17] MEDS ORDERED: NORMOSOL-R 1,000 ML IV ONE (09:15)
[2020-12-17] MEDS: MoRPHine SULFATE 2 MG/ML CARP IV PRN ×3 (09:49→19:30)
[2020-12-17] MEDS: dexAMETHasone 4 MG TAB PO SCH (09:49)
[2020-12-17] MEDS: cefTRIAXone SODIUM 2,000 MG in DEXTROSE 5% 50 ML IV SCH (09:50)
[2020-12-17 10:49] LABS: Basophils # (auto) 0.03 K/uL (0-0.2); Basophils % (auto) 0.5 %; Eosinophils % (auto) 3.1 %; Hematocrit (blood only) 34.1 % (42-52); Lymphocytes # (auto) 1.78 K/uL (1.2-3.4); Lymphocytes % (auto) 27.8 %; Mean Corpuscular Hemoglobin 27.4 pg (25-34); Mean Corpuscular Hgb Conc 32.3 g/dL (32-36); Mean Corpuscular Volume 84.8 fL (80-100); Monocytes # (auto) 0.31 K/uL (0.11-0.59); Monocytes % (auto) 4.8 %; Neutrophils # (auto) 4.08 K/uL (1.4-6.5); Neutrophils % (auto) 63.8 %; Platelet Count 357 K/uL (130-400); RDW Coefficient of Variation 16.1 % (11.5-14.5); RDW Standard Deviation 49.6 fL (36.4-46.3); Red Blood Count 4.02 M/uL (4.7-6.1)
[2020-12-17 11:00] LABS: Partial Thromboplastin Ratio 1.7; Partial Thromboplastin Time 44.4 Seconds (21.0-31.0)
[2020-12-17 11:51] LABS: Bilirubin Direct 0.2 mg/dl (0-0.2); Bilirubin,Total 0.5 mg/dl (0.2-1); Total Protein 7.4 gm/dl (6.4-8.2); Troponin I 0.598 ng/ml (0-0.045)
[2020-12-17] MEDS: HEPARIN SODIUM/DEXTROSE 25,000 UNITS/500 ML BAG IV SCH (12:17)
--- NOTE | 2020-12-17 12:31 | Hospitalist Progress Note ---
Date of Service December 17, 2020 Assessment & Plan (1) Pulmonary embolism: Patient with acute bilateral PEs. Occurred while on Eliquis - patient reports taking his medications as prescribed. Some evidence of right heart strain with elevated troponins and BNP; however, also has significant cardiom yopathy, so this is confounding. - Follow results of Factor V, Prothrombin, Homocysteine, Protein C/S and Anti- thrombin III - Continue heparin gtt - Start warfarin - Pain control - Discussed with pulmonology today who felt current management was appropriate; no indication for thrombolysis or thrombectomy. (2) COVID-19: Patient with positive PCR Covid-19 test on 12/16. Last tested with PCR on 12/09 and was NEGATIVE. Negative antigen test on 12/15. He is not vaccinated. CTA wtih nodular subpleural consolidations possibly secondary to Covid. - Considered true, active infection -> Maintain isolation precautions - Given his hypoxemia on 12/16, started dexamethasone 6 mg PO x 10 days - Given overall stability, no indication for tocilizumab or remdesivir. - Added abx per pulmonology recommendation given his CT chest findings from 12/16. (3) DVT (deep venous thrombosis): Acute extensive DVT of LLE while on Eliquis seen on Doppler on 12/16. - Management as above - Requested records from [place] of prior hospital stay (4) Elevated troponin: No indication of ACS. Patient does have some pleuritic chest pain with his current PEs. - Trended troponins -> Stable at ~0.6. - Heparin gtt as above - Continue Plavix (5) Peripheral vascular disease: Chronic. Patient states that he has stents in place. - Continue Plavix, atorvastatin (6) History of seizures: Chronic. Seizure-free presently. - Continue Keppra (7) Cardiomyopathy: Reduced EF. Patient reports this is chronic, but no records in our system. Presumed ischemic cardiomyopathy given hx of coronary stent(s). - Continue beta-deb, - Monitor weights, careful with IV fluids, monitor I&Os (8) DVT prophylaxis: On heparin gtt for PE Admission and Anticipated Discharge Date Admission Date: December 16, 2020 Subjective Doing ok today. Chest is still very sore. Reports no fevers/chills, shortness of breath, abdominal pain, nausea, or vomiting. Physical Exam Constitutional: WD/WN, vitals as above + acute distress Eyes: EOM intact bilaterally; no conjunctival abnormality ENMT: external ear and nose normal, oropharynx normal Neck: trachea midline, no thyromegaly normal visual inspection Respiratory: normal respiratory effort, lungs clear to auscultation no respiratory distress Cardiovascular: RRR, no murmur, no edema Gastrointestinal (Abdomen): Inspection/Auscultation: abdomen normal to inspection; abdomen not distended Musculoskeletal: no cyanosis or clubbing, extremities motor strength 5/5 Skin: no rashes, warm and dry Neurologic: moves all extremities and awake Psychiatric: Orientation: alert, oriented to person and cooperative Results & Data Results & Data ([facility]) Vital Signs (Past 12 Hours) Vital Signs Temp Pulse Pulse Resp BP Pulse Ox 12/17/20 11:20 36.5 C 84 18 105/65 97 12/17/20 10:21 94 H 12/17/20 07:31 36.5 C 83 18 90/60 L 96 12/17/20 03:34 37.1 C 73 18 87/64 L 91 12/17/20 00:25 36.5 C 16 103/71 94 PG Care Time/CCT Total # of Minutes Spent Total Time Spent with Patient: Total time spent is greater than 50% in coordination of care (as documented) at patient's floor/unit and/or counseling patient: Coding Level of Care Code 71693 Subseq Hosp Care Lvl 3 Diagnoses Pulmonary embolism I26.99 Pulmonary embolism type: unspecified Chronicity: unspecified Acute cor pulmonale presence: unspecified COVID-19 U07.1 DVT (deep venous thrombosis) I82.402 DVT location: lower extremity Affected thrombotic vein of extremity: unspecified vein of extremity Chronicity: acute Laterality: left Elevated troponin R77.8 Peripheral vascular disease I73.9 History of seizures Z87.898 Cardiomyopathy I42.9 DVT prophylaxis Z29.9 (1) Pulmonary embolism Pulmonary embolism type: unspecified Chronicity: unspecified Acute cor pulmonale presence: unspecified Qualified Code(s): I26.99 - Other pulmonary embolism without acute cor pulmonale (2) DVT (deep venous thrombosis) DVT location: lower extremity Affected thrombotic vein of extremity: unspecified vein of extremity Chronicity: acute Laterality: left Qualified Code(s): I82.402 - Acute embolism and thrombosis of unspecified deep veins of left lower extremity
[2020-12-17] MEDS: WARFARIN SOD 5 MG TAB PO SCH (16:20)
[2020-12-17 20:12] LABS: Partial Thromboplastin Ratio 1.6
--- NOTE | 2020-12-17 22:30 | XCELERA ---
[id number]
[2020-12-18] MEDS: MoRPHine SULFATE 2 MG/ML CARP IV PRN ×3 (00:18→10:31)
[2020-12-18 03:22] LABS: Hematocrit (blood only) 30.7 % (42-52); Mean Corpuscular Hemoglobin 27.1 pg (25-34); Mean Corpuscular Hgb Conc 32.6 g/dL (32-36); Mean Corpuscular Volume 83.2 fL (80-100); Mean Platelet Volume 9.9 fL (7.4-10.4); Platelet Count 340 K/uL (130-400); RDW Coefficient of Variation 15.7 % (11.5-14.5); RDW Standard Deviation 48.5 fL (36.4-46.3); Red Blood Count 3.69 M/uL (4.7-6.1); White Blood Count 10.38 K/uL (4.8-10.8)
[2020-12-18 03:42] LABS: Albumin Level 2.9 gm/dl (3.4-5.0); BUN Creatinine Ratio 20.5 (10-20); Calcium 8.8 mg/dl (8.5-10.1); Creatinine Clr Calc Pharmacy 126.6 ml/min; Est GFR (African American) 124.2 ml/min; Est GFR (Non-African American) 107.1 ml/min; Potassium 4.1 mmol/L (3.5-5.1)
[2020-12-18 03:45] LABS: Albumin Globulin Ratio 0.7 (0.9-2); Bilirubin,Total 0.4 mg/dl (0.2-1); Globulin 4.2 gm/dl (2.5-4.0); INR 1.1 (0.9-1.1); Partial Thromboplastin Ratio 1.9; Phosphorus 4.3 mg/dl (2.5-4.9); Prothrombin Time 11.3 Seconds (9.0-12.0); Total Protein 7.1 gm/dl (6.4-8.2)
[2020-12-18 03:46] LABS: Partial Thromboplastin Time 49.9 Seconds (21.0-31.0)
[2020-12-18] MEDS: HEPARIN SODIUM/DEXTROSE 25,000 UNITS/500 ML BAG IV SCH ×3 (04:05→17:59)
--- NOTE | 2020-12-18 05:47 | Electrocardiogram Report ---
Test Reason : Blood Pressure : / mmHG Vent. Rate : 082 BPM Atrial Rate : 082 BPM P-R Int : 160 ms QRS Dur : 092 ms QT Int : 400 ms P-R-T Axes : 053 -07 108 degrees QTc Int : 467 ms Normal sinus rhythm Possible Left atrial enlargement Anterior infarct T wave abnormality, consider anterior ischemia Abnormal ECG No previous ECGs available Confirmed by Jacques Mcbride ([id number]) on 12/18/2020 5:47:18 AM Referred By: REFERRED SELF Confirmed By:Jacques Mcbride
[2020-12-18] MEDS: MoRPHine SULFATE CR 15 MG TABCR PO SCH ×2 (09:22→20:03)
[2020-12-18] MEDS: DOCUSATE SODIUM 100 MG CAP PO SCH ×2 (09:23→20:03)
[2020-12-18] MEDS: GABAPENTIN 300 MG CAP PO SCH ×3 (09:23→20:04)
[2020-12-18] MEDS: levETIRAcetam 500 MG TAB PO SCH ×2 (09:23→20:03)
[2020-12-18] MEDS: DULoxetine HCL 20 MG CAP PO SCH (09:24)
[2020-12-18] MEDS: METOPROLOL SUCC 25MG EXT REL TAB PO SCH (09:24)
[2020-12-18] MEDS: FOLIC ACID 1 MG TAB PO SCH (09:24)
[2020-12-18] MEDS: PANTOprazole 40 MG TAB PO SCH (09:25)
[2020-12-18] MEDS: FAMOTIDINE 20 MG TAB PO SCH (09:25)
[2020-12-18] MEDS: AZITHROMYCIN 250 MG TAB PO SCH (09:25)
[2020-12-18] MEDS: THIAMINE HCL 100 MG TAB PO SCH (09:26)
[2020-12-18] MEDS: dexAMETHasone 4 MG TAB PO SCH (09:26)
[2020-12-18] MEDS: CLOPIDOGREL BISULFATE 75 MG TAB PO SCH (09:26)
[2020-12-18] MEDS: ATORVASTATIN 40 MG TAB PO SCH (09:27)
[2020-12-18] MEDS: NICOTINE 14 MG/24 HR PATCH TD SCH (09:28)
[2020-12-18] MEDS: cefTRIAXone SODIUM 2,000 MG in DEXTROSE 5% 50 ML IV SCH (10:33)
--- NOTE | 2020-12-18 13:34 | Hospitalist Progress Note ---
Date of Service December 18, 2020 Assessment & Plan (1) Pulmonary embolism: Patient with acute bilateral PEs. Occurred while on Eliquis - patient reports taking his medications as prescribed. Some evidence of right heart strain with elevated troponins and BNP; however, also has significant cardiom yopathy, so this is confounding. - Follow results of Factor V, Prothrombin, Homocysteine, Protein C/S and Anti- thrombin III - Continue heparin gtt - Start warfarin - Pain control - Discussed with pulmonology today who felt current management was appropriate; no indication for thrombolysis or thrombectomy. - Discussed with vascular on 12/18 -> Given ongoing numbness of left leg, will have them weigh in on thrombectomy, though inital thought was that it was probably not. - Will consult hematology for their thoughts. - Obtaining records from [facility] and [place] as well. (2) COVID-19: Patient with positive PCR Covid-19 test on 12/16. Last tested with PCR on 12/09 and was NEGATIVE. Negative antigen test on 12/15. He is not vaccinated. CTA wtih nodular subpleural consolidations possibly secondary to Covid. - Considered true, active infection -> Maintain isolation precautions - Given his hypoxemia on 12/16, started dexamethasone 6 mg PO x 10 days - STOPPED dexamethasone after 2 doses. The patient is actually not hypoxemi - Given overall stability, no indication for tocilizumab or remdesivir. - Added abx per pulmonology recommendation given his CT chest findings from 12/16. (3) DVT (deep venous thrombosis): Acute extensive DVT of LLE while on Eliquis seen on Doppler on 12/16. - Management as above - Requested records from [place] of prior hospital stay (4) Elevated troponin: No indication of ACS. Patient does have some pleuritic chest pain with his current PEs. - Trended troponins -> Stable at ~0.6. - Heparin gtt as above - Continue Plavix (5) Peripheral vascular disease: Chronic. Patient states that he has stents in place. - Continue Plavix, atorvastatin (6) History of seizures: Chronic. Seizure-free presently. - Continue Keppra (7) Cardiomyopathy: Reduced EF. Patient reports this is chronic, but no records in our system. Presumed ischemic cardiomyopathy given hx of coronary stent(s). - Continue beta-deb, statin - Monitor weights, careful with IV fluids, monitor I&Os - Appears euvolemic today. (8) DVT prophylaxis: On heparin gtt for PE Admission and Anticipated Discharge Date Admission Date: December 16, 2020 Subjective With ongoing pain in the left thigh area. Some chest pain that is doing some better with the morphine. Reports no fevers/chills, shortness of breath, abdominal pain, nausea, or vomiting. Physical Exam Constitutional: WD/WN, vitals as above Eyes: EOM intact bilaterally; no conjunctival abnormality ENMT: external ear and nose normal, oropharynx normal Neck: trachea midline, no thyromegaly normal visual inspection Respiratory: normal respiratory effort, lungs clear to auscultation no respiratory distress Cardiovascular: RRR, no murmur, no edema Gastrointestinal (Abdomen): Inspection/Auscultation: abdomen normal to inspection; abdomen not distended Musculoskeletal: no cyanosis or clubbing, extremities motor strength 5/5 Skin: no rashes, warm and dry Neurologic: moves all extremities and awake Motor/Sensory: + sensory deficit (Reports numbness to light touch on the left thigh circumferentially) Psychiatric: Orientation: alert, oriented to person and cooperative Results & Data Results & Data ([facility]) Vital Signs (Past 12 Hours) Vital Signs Temp Pulse Pulse Resp BP Pulse Ox 12/18/20 11:00 36.8 C 91 H 16 95 12/18/20 08:00 36.7 C 94 H 18 118/84 97 12/18/20 07:16 91 H PG Care Time/CCT Total # of Minutes Spent Total Time Spent with Patient: Total time spent is greater than 50% in coordination of care (as documented) at patient's floor/unit and/or counseling patient: Coding Level of Care Code 14038 Subseq Hosp Care Lvl 3 Diagnoses Pulmonary embolism I26.99 Pulmonary embolism type: unspecified Chronicity: acute Acute cor pulmonale presence: unspecified COVID-19 U07.1 DVT (deep venous thrombosis) I82.402 DVT location: lower extremity Affected thrombotic vein of extremity: unspecified vein of extremity Chronicity: acute Laterality: left Elevated troponin R77.8 Peripheral vascular disease I73.9 History of seizures Z87.898 Cardiomyopathy I42.9 DVT prophylaxis Z29.9 (1) Pulmonary embolism Pulmonary embolism type: unspecified Chronicity: acute Acute cor pulmonale presence: unspecified Qualified Code(s): I26.99 - Other pulmonary embolism without acute cor pulmonale (2) DVT (deep venous thrombosis) DVT location: lower extremity Affected thrombotic vein of extremity: unspecified vein of extremity Chronicity: acute Laterality: left Qualified Code(s): I82.402 - Acute embolism and thrombosis of unspecified deep veins of left lower extremity
--- NOTE | 2020-12-18 14:45 | Pulmonology Progress Note ---
Date of Service December 18, 2020 Assessment & Plan (1) Pulmonary embolism: CT chest 12/16/2020 personally reviewed: Dense patchy opacities appreciated in bilateral upper lobes peripherally as well as right lower lobe. Pulmonary embolus is also appreciated bilateral lower more than the right lower pulmonary artery. Possible wedge infarct right lower lobe No right heart strain appreciated Groundglass opacities also appreciated bilaterally No mediastinal adenopathy --Acute PE Patient already has an IVC filter in place In a patient who was on apixaban and states that he is compliant with it I think this is failure of apixaban Patient is also COVID-19 positive which is also hypercoagulable state on top of the I think the next best step would be to have the patient on warfarin Hematology consult would be helpful to get their opinion I personally did not see right heart strain on the CT chest Patient is not a candidate for systemic TPA --Patchy dense opacities bilateral upper and lower lobes Unusual to be seen in COVID-19 Right lower lobe could be from wedge infarct Recommend continuing antibiotics --COVID-19 pneumonia Patient was not hypoxic at the time of presentation Given the EF of only 20-25% I think the patient's hypoxia is coming more from fluid overload rather than COVID-19 pneumonia --Transient hypotension It seems patient most likely has low blood pressure to begin with He does not have any DAVID He does not have any symptoms when his blood pressure is on the lower side Recommend cortisol level Plan: Continue with heparin drip with bridge to warfarin O2 supplementation to keep oxygen saturation greater than 90 Continue with diuretics. Continue with antibiotics for total of 5 days No further recommendations from pulmonary perspective. Call directly with any questions. Please note the above document was generated using voice recognition software. It may contain grammatical, syntax or spelling errors.Any formal questions or concerns about the content, text or information contained within the body of this dictation should be directly addressed to the provider for clarification. Pulmonary embolism type: unspecified Chronicity: acute Acute cor pulmonale presence: unspecified Qualified Code(s): I26.99 - Other pulmonary embolism without acute cor pulmonale (2) DVT (deep venous thrombosis): DVT location: lower extremity Affected thrombotic vein of extremity: unspecified vein of extremity Chronicity: acute Laterality: left Qualified Code(s): I82.402 - Acute embolism and thrombosis of unspecified deep veins of left lower extremity (3) COVID-19: (4) Abnormal chest CT: Admission and Anticipated Discharge Date Admission Date: December 16, 2020 Subjective Patient seen and examined through the glass window. Not in any acute distress. Saturating 96% on nasal cannula. Case discussed with ADAIR Saavedra Review of Systems Review of Systems: Other Physical Exam Physical Exam: Patient not examined due to coronavirus restrictions and attempts to minimize exposure to staff and consider PPE. Please refer to the hospitalist exam for complete details. Results & Data Results & Data ([facility]) Vital Signs (Past 12 Hours) Vital Signs Temp Pulse Pulse Resp BP Pulse Ox 12/18/20 11:00 36.8 C 91 H 16 95 12/18/20 08:00 36.7 C 94 H 18 118/84 97 12/18/20 07:16 91 H 12/18/20 03:01 12/18/20 03:01 PG Care Time/CCT Total # of Minutes Spent Total Time Spent with Patient: Total time spent is greater than 50% in coordina tion of care (as documented) at patient's floor/unit and/or counseling patient: Coding Level of Care Code 85660 Subseq Hosp Care Lvl 2 Diagnoses Pulmonary embolism I26.99 Pulmonary embolism type: unspecified Chronicity: acute Acute cor pulmonale presence: unspecified DVT (deep venous thrombosis) I82.402 DVT location: lower extremity Affected thrombotic vein of extremity: unspecified vein of extremity Chronicity: acute Laterality: left COVID-[address] R93.89
[2020-12-18] MEDS: MoRPHine SULFATE 4 MG/ML 1 ML CARP\\VIAL IV PRN ×2 (15:09→21:41)
[2020-12-18] MEDS: WARFARIN SOD 5 MG TAB PO SCH (15:17)
[2020-12-19] MEDS: MoRPHine SULFATE 4 MG/ML 1 ML CARP\\VIAL IV PRN ×5 (02:40→22:00)
[2020-12-19 06:44] LABS: Hematocrit (blood only) 30.7 % (42-52); Hemoglobin 9.7 g/dL (14.0-18.0); Mean Corpuscular Hemoglobin 27.4 pg (25-34); Mean Corpuscular Hgb Conc 31.6 g/dL (32-36); Mean Corpuscular Volume 86.7 fL (80-100); Mean Platelet Volume 10.3 fL (7.4-10.4); Platelet Count 312 K/uL (130-400); RDW Coefficient of Variation 16.1 % (11.5-14.5); RDW Standard Deviation 51.7 fL (36.4-46.3); Red Blood Count 3.54 M/uL (4.7-6.1)
[2020-12-19 06:52] LABS: INR 1.1 (0.9-1.1); Prothrombin Time 11.4 Seconds (9.0-12.0)
[2020-12-19 07:23] LABS: Albumin Level 3.1 gm/dl (3.4-5.0); BUN Creatinine Ratio 20.8 (10-20); Calcium 8.9 mg/dl (8.5-10.1); Creatinine Clr Calc Pharmacy 120.6 ml/min; Est GFR (African American) 121.7 ml/min
[2020-12-19 07:26] LABS: Albumin Globulin Ratio 0.8 (0.9-2); Bilirubin,Total 0.4 mg/dl (0.2-1); Total Protein 7.1 gm/dl (6.4-8.2)
[2020-12-19 07:39] LABS: Partial Thromboplastin Ratio 1.8; Partial Thromboplastin Time 47.9 Seconds (21.0-31.0)
[2020-12-19] MEDS: levETIRAcetam 500 MG TAB PO SCH ×2 (08:18→20:30)
[2020-12-19] MEDS: MoRPHine SULFATE CR 15 MG TABCR PO SCH ×2 (08:18→20:30)
[2020-12-19] MEDS: DOCUSATE SODIUM 100 MG CAP PO SCH ×2 (08:18→20:30)
[2020-12-19] MEDS: FOLIC ACID 1 MG TAB PO SCH (08:19)
[2020-12-19] MEDS: FAMOTIDINE 20 MG TAB PO SCH (08:19)
[2020-12-19] MEDS: GABAPENTIN 300 MG CAP PO SCH ×3 (08:19→20:30)
[2020-12-19] MEDS: METOPROLOL SUCC 25MG EXT REL TAB PO SCH (08:19)
[2020-12-19] MEDS: CLOPIDOGREL BISULFATE 75 MG TAB PO SCH (08:20)
[2020-12-19] MEDS: AZITHROMYCIN 250 MG TAB PO SCH (08:20)
[2020-12-19] MEDS: THIAMINE HCL 100 MG TAB PO SCH (08:20)
[2020-12-19] MEDS: PANTOprazole 40 MG TAB PO SCH (08:21)
[2020-12-19] MEDS: ATORVASTATIN 40 MG TAB PO SCH (08:21)
[2020-12-19] MEDS: DULoxetine HCL 20 MG CAP PO SCH (08:21)
[2020-12-19] MEDS: cefTRIAXone SODIUM 2,000 MG in DEXTROSE 5% 50 ML IV SCH (08:24)
[2020-12-19] MEDS: NICOTINE 14 MG/24 HR PATCH TD SCH (08:52)
[2020-12-19] MEDS: HEPARIN SODIUM/DEXTROSE 25,000 UNITS/500 ML BAG IV SCH ×2 (08:58→18:57)
[2020-12-19] MEDS: WARFARIN SOD 5 MG TAB PO SCH (16:11)
--- NOTE | 2020-12-19 16:32 | Hospitalist Progress Note ---
Date of Service December 19, 2020 Assessment & Plan (1) Pulmonary embolism: Patient with acute bilateral PEs. Occurred while on Eliquis - patient reports taking his medications as prescribed. No indication of right heart strain on echo. - Follow results of Factor V, Prothrombin, Homocysteine, Protein C/S and Anti- thrombin III - Continue heparin gtt - Started warfarin - Monitor INR - Discussed with pulmonology & vascular who feel current management is appropriate; no indication for thrombolysis or thrombectomy. - Discussed with hematology on 12/19 -> Will have to consider this an Eliquis failure (due to Covid?). Transition to warfarin. - Obtained records from [facility] and [place]: Found unresponsive on 07/22/2020 after fentanyl overdose. Taken to [facility] and found to have an LAD STEMI with one BMS to the LAD. He went into vfib arrest several times and cardiogenic shock required Impella from 07/22 - 07/28 & [facility] from 07/22 - 07/25. Required a percutaneous cholecystectomy tube on 08/01 for acalculous cholecystitis. Eventually discharged to [facility] on 08/08. On 12/02/2020, he was diagnosed with extensive DVT/PEs. On 12/04/2020, he underwent bilateral thrombectomy and bilateral external iliac-common femoral venous stenting and IVC filter placement. (2) COVID-19: Patient with positive PCR Covid-19 test on 12/16. Last tested with PCR on 12/09 and was NEGATIVE. Negative antigen test on 12/15. He is not vaccinated. CTA wtih nodular subpleural consolidations possibly secondary to Covid. - Considered true, active infection -> Maintain isolation precautions - Given his hypoxemia on 12/16, started dexamethasone 6 mg PO x 10 days - STOPPED dexamethasone after 2 doses. The patient is actually not hypoxemic. - Given overall stability, no indication for tocilizumab or remdesivir. - Added abx per pulmonology recommendation given his CT chest findings from 12/16. (3) DVT (deep venous thrombosis): Acute extensive DVT of LLE while on Eliquis seen on Doppler on 12/16. - Management as above (4) Elevated troponin: No indication of ACS. Patient does have some pleuritic chest pain with his current PEs. - Trended troponins -> Stable at ~0.6. - Heparin gtt as above - Continue Plavix (5) Peripheral vascular disease: Chronic. Patient states that he has stents in place. - Continue Plavix, atorvastatin (6) History of seizures: Chronic. Seizure-free presently. - Continue Keppra (7) Cardiomyopathy: Reduced EF. Patient reports this is chronic, but no records in our system. Presumed ischemic cardiomyopathy given hx of coronary stent(s). - Continue beta-deb, statin - Monitor weights, careful with IV fluids, monitor I&Os - Appears euvolemic today. (8) DVT prophylaxis: On heparin gtt for PE Admission and Anticipated Discharge Date Admission Date: December 16, 2020 Subjective Doing well today. Still with some chest pain, especially with deep breathing. Reports no fevers/chills, shortness of breath, abdominal pain, nausea, or vomiting. Physical Exam Constitutional: WD/WN, vitals as above no acute distress Eyes: EOM intact bilaterally; no conjunctival abnormality ENMT: external ear and nose normal, oropharynx normal Neck: trachea midline, no thyromegaly normal visual inspection Respiratory: normal respiratory effort, lungs clear to auscultation no respiratory distress Cardiovascular: RRR, no murmur, no edema Gastrointestinal (Abdomen): Inspection/Auscultation: abdomen normal to inspection; abdomen not distended Musculoskeletal: no cyanosis or clubbing, extremities motor strength 5/5 Skin: no rashes, warm and dry Neurologic: moves all extremities and awake Motor/Sensory: + sensory deficit (Reports numbness to light touch on the left thigh circumferentially) Psychiatric: Orientation: alert, oriented to person and cooperative Results & Data Results & Data ([facility]) Vital Signs (Past 12 Hours) Vital Signs Temp Pulse Pulse Resp BP Pulse Ox 12/19/20 16:12 36.9 C 84 19 101/77 98 12/19/20 15:03 75 12/19/20 11:00 36.5 C 81 18 101/65 95 12/19/20 08:10 36.7 C 79 16 109/46 L 98 12/19/20 07:45 84 PG Care Time/CCT Total # of Minutes Spent Total Time Spent with Patient: Total time spent is greater than 50% in coordination of care (as documented) at patient's floor/unit and/or counseling patient: Coding Level of Care Code 58593 Subseq Hosp Care Lvl 3 Diagnoses Pulmonary embolism I26.99 Pulmonary embolism type: unspecified Chronicity: acute Acute cor pulmonale presence: unspecified COVID-19 U07.1 DVT (deep venous thrombosis) I82.402 DVT location: lower extremity Affected thrombotic vein of extremity: unspecified vein of extremity Chronicity: acute Laterality: left Elevated troponin R77.8 Peripheral vascular disease I73.9 History of seizures Z87.898 Cardiomyopathy I42.9 DVT prophylaxis Z29.9 (1) Pulmonary embolism Pulmonary embolism type: unspecified Chronicity: acute Acute cor pulmonale presence: unspecified Qualified Code(s): I26.99 - Other pulmonary embolism without acute cor pulmonale (2) DVT (deep venous thrombosis) DVT location: lower extremity Affected thrombotic vein of extremity: unspecified vein of extremity Chronicity: acute Laterality: left Qualified Code(s): I82.402 - Acute embolism and thrombosis of unspecified deep veins of left lower extremity
[2020-12-19 23:11] LABS: Anti-Thrombin III Activity 69 % normal (80-135); Protein S Functional(Activity) 103 % (70-150)
[2020-12-20] MEDS: HEPARIN SODIUM/DEXTROSE 25,000 UNITS/500 ML BAG IV SCH ×2 (01:46→15:58)
[2020-12-20] MEDS: MoRPHine SULFATE 4 MG/ML 1 ML CARP\\VIAL IV PRN ×5 (02:08→21:16)
[2020-12-20 06:15] LABS: Hemoglobin 10.4 g/dL (14.0-18.0); Mean Corpuscular Hemoglobin 27.3 pg (25-34); Mean Corpuscular Hgb Conc 31.5 g/dL (32-36); Mean Corpuscular Volume 86.6 fL (80-100); Mean Platelet Volume 10.1 fL (7.4-10.4); Platelet Count 311 K/uL (130-400); RDW Coefficient of Variation 16.5 % (11.5-14.5); RDW Standard Deviation 52.7 fL (36.4-46.3); Red Blood Count 3.81 M/uL (4.7-6.1); White Blood Count 11.36 K/uL (4.8-10.8)
[2020-12-20 06:27] LABS: INR 1.2 (0.9-1.1)
[2020-12-20 06:50] LABS: BUN Creatinine Ratio 15.1 (10-20); Creatinine Clr Calc Pharmacy 97.4 ml/min; Est GFR (African American) 99.3 ml/min; Est GFR (Non-African American) 85.7 ml/min
[2020-12-20] MEDS: cefTRIAXone SODIUM 2,000 MG in DEXTROSE 5% 50 ML IV SCH (08:44)
[2020-12-20] MEDS: GABAPENTIN 300 MG CAP PO SCH ×3 (08:45→20:48)
[2020-12-20] MEDS: ATORVASTATIN 40 MG TAB PO SCH (08:45)
[2020-12-20] MEDS: levETIRAcetam 500 MG TAB PO SCH ×2 (08:45→20:48)
[2020-12-20] MEDS: DOCUSATE SODIUM 100 MG CAP PO SCH ×2 (08:45→20:56)
[2020-12-20] MEDS: DULoxetine HCL 20 MG CAP PO SCH (08:46)
[2020-12-20] MEDS: PANTOprazole 40 MG TAB PO SCH (08:46)
[2020-12-20] MEDS: METOPROLOL SUCC 25MG EXT REL TAB PO SCH (08:46)
[2020-12-20] MEDS: CLOPIDOGREL BISULFATE 75 MG TAB PO SCH (08:46)
[2020-12-20] MEDS: AZITHROMYCIN 250 MG TAB PO SCH (08:46)
[2020-12-20] MEDS: FAMOTIDINE 20 MG TAB PO SCH (08:47)
[2020-12-20] MEDS: FOLIC ACID 1 MG TAB PO SCH (08:47)
[2020-12-20] MEDS: NICOTINE 14 MG/24 HR PATCH TD SCH (08:48)
[2020-12-20] MEDS: MoRPHine SULFATE CR 15 MG TABCR PO SCH ×2 (08:58→20:56)
[2020-12-20] MEDS: POLYETHYLENE (MIRALAX) 17 GM PACK PO PRN (09:42)
[2020-12-20 10:21] LABS: Partial Thromboplastin Ratio 1.9
[2020-12-20 10:30] LABS: Partial Thromboplastin Time 49.5 Seconds (21.0-31.0)
[2020-12-20] MEDS: WARFARIN SOD 5 MG TAB PO SCH (15:52)
--- NOTE | 2020-12-20 16:11 | Hospitalist Progress Note ---
Date of Service December 20, 2020 Assessment & Plan (1) Pulmonary embolism: Patient with acute bilateral PEs. Occurred while on Eliquis - patient reports taking his medications as prescribed. No indication of right heart strain on echo. - Discussed with pulmonology & vascular who feel current management is appropriate; no indication for thrombolysis or thrombectomy. - Discussed with hematology on 12/19 -> Will have to consider this an Eliquis failure (due to Covid?). Transition to warfarin. - Follow results of Factor V, Prothrombin, Homocysteine, Protein C/S and Anti- thrombin III - Continue heparin gtt - Started warfarin - Monitor INR -> Only 1.2 today. - Obtained records from [facility] and [place]: Found unresponsive on 07/22/2020 after fentanyl overdose. Taken to [facility] and found to have an LAD STEMI with one BMS to the LAD. He went into vfib arrest several times and cardiogenic shock required Impella from 07/22 - 07/28 & [facility] ECMO from 07/22 - 07/25. Required a percutaneous cholecystectomy tube on 08/01 for acalculous cholecystitis. Eventually discharged to [facility] on 08/08. On 12/02/2020, he was diagnosed with extensive DVT/PEs. On 12/04/2020, he underwent bilateral thrombectomy and bilateral external iliac-common femoral venous stenting and IVC filter placement. (2) COVID-19: Patient with positive PCR Covid-19 test on 12/16. Last tested with PCR on 12/09 and was NEGATIVE. Negative antigen test on 12/15. He is not vaccinated. CTA wtih nodular subpleural consolidations possibly secondary to Covid. - Considered true, active infection -> Maintain isolation precautions - Given his hypoxemia on 12/16, started dexamethasone 6 mg PO x 10 days - STOPPED dexamethasone after 2 doses. The patient is not hypoxemic. - Given overall stability, no indication for tocilizumab or remdesivir. - Added abx per pulmonology recommendation given his CT chest findings from 12/16. (3) DVT (deep venous thrombosis): Acute extensive DVT of LLE while on Eliquis seen on Doppler on 12/16. - Management as above (4) Elevated troponin: No indication of ACS. Patient does have some pleuritic chest pain with his current PEs. - Trended troponins -> Stable at ~0.6. - Heparin gtt as above - Continue Plavix (5) Peripheral vascular disease: Chronic. Patient states that he has stents in place. - Continue Plavix, atorvastatin (6) History of seizures: Chronic. Seizure-free presently. - Continue Keppra (7) Cardiomyopathy: Reduced EF at 25 - 30%. EF in 11/2020 was <20%, so it appears EF is increasing. Due to STEMI and cardiogenic shock in 07/2020 as a result of his overdose. - Continue beta-deb, statin - Add lisinopril 2.5 mg PO daily - Monitor weights, careful with IV fluids, monitor I&Os - Appears euvolemic today. (8) DVT prophylaxis: On heparin gtt for PE Admission and Anticipated Discharge Date Admission Date: December 16, 2020 Subjective Pain is well-controlled today. He is up and moving around more. Doing well. Reports no fevers/chills, chest pain, shortness of breath, abdominal pain, naus ea, or vomiting. Physical Exam Constitutional: WD/WN, vitals as above no acute distress Eyes: EOM intact bilaterally; no conjunctival abnormality ENMT: external ear and nose normal, oropharynx normal Neck: trachea midline, no thyromegaly normal visual inspection Respiratory: normal respiratory effort, lungs clear to auscultation no respiratory distress Cardiovascular: RRR, no murmur, no edema Gastrointestinal (Abdomen): Inspection/Auscultation: abdomen normal to inspection; abdomen not distended Musculoskeletal: no cyanosis or clubbing, extremities motor strength 5/5 Skin: no rashes, warm and dry Neurologic: moves all extremities and awake Motor/Sensory: + sensory deficit (Reports numbness to light touch on the left thigh circumferentially) Psychiatric: Orientation: alert, oriented to person and cooperative Results & Data Results & Data ([facility]) Vital Signs (Past 12 Hours) Vital Signs Pulse 12/20/20 15:08 84 12/20/20 07:15 68 PG Care Time/CCT Total # of Minutes Spent Total Time Spent with Patient: Total time spent is greater than 50% in coordination of care (as documented) at patient's floor/unit and/or counseling patient: Coding Level of Care Code 43812 Subseq Hosp Care Lvl 2 Diagnoses Pulmonary embolism I26.99 Pulmonary embolism type: unspecified Chronicity: acute Acute cor pulmonale presence: unspecified COVID-19 U07.1 DVT (deep venous thrombosis) I82.402 DVT location: lower extremity Affected thrombotic vein of extremity: unspecified vein of extremity Chronicity: acute Laterality: left Elevated troponin R77.8 Peripheral vascular disease I73.9 History of seizures Z87.898 Cardiomyopathy I42.9 DVT prophylaxis Z29.9 (1) Pulmonary embolism Pulmonary embolism type: unspecified Chronicity: acute Acute cor pulmonale presence: unspecified Qualified Code(s): I26.99 - Other pulmonary embolism without acute cor pulmonale (2) DVT (deep venous thrombosis) DVT location: lower extremity Affected thrombotic vein of extremity: unspecified vein of extremity Chronicity: acute Laterality: left Qualified Code(s): I82.402 - Acute embolism and thrombosis of unspecified deep veins of left lower extremity
[2020-12-21] MEDS: MoRPHine SULFATE 4 MG/ML 1 ML CARP\\VIAL IV PRN ×5 (02:18→19:31)
[2020-12-21] MEDS: HEPARIN SODIUM/DEXTROSE 25,000 UNITS/500 ML BAG IV SCH ×2 (06:23→21:21)
[2020-12-21 07:22] LABS: Hematocrit (blood only) 34.3 % (42-52); Hemoglobin 10.9 g/dL (14.0-18.0); Mean Corpuscular Hemoglobin 27.3 pg (25-34); Mean Corpuscular Hgb Conc 31.8 g/dL (32-36); Mean Platelet Volume 10.4 fL (7.4-10.4); Platelet Count 308 K/uL (130-400); RDW Coefficient of Variation 16.4 % (11.5-14.5); RDW Standard Deviation 51.9 fL (36.4-46.3); Red Blood Count 3.99 M/uL (4.7-6.1); White Blood Count 9.64 K/uL (4.8-10.8)
[2020-12-21 07:39] LABS: BUN Creatinine Ratio 15.4 (10-20); Creatinine Clr Calc Pharmacy 115.1 ml/min; Est GFR (African American) 119.4 ml/min
[2020-12-21 07:44] LABS: INR 1.3 (0.9-1.1); Partial Thromboplastin Ratio 1.9; Prothrombin Time 12.9 Seconds (9.0-12.0)
[2020-12-21 07:45] LABS: Partial Thromboplastin Time 50.4 Seconds (21.0-31.0)
[2020-12-21] MEDS: cefTRIAXone SODIUM 2,000 MG in DEXTROSE 5% 50 ML IV SCH (08:18)
[2020-12-21] MEDS: levETIRAcetam 500 MG TAB PO SCH ×2 (08:19→21:23)
[2020-12-21] MEDS: ATORVASTATIN 40 MG TAB PO SCH (08:19)
[2020-12-21] MEDS: GABAPENTIN 300 MG CAP PO SCH ×3 (08:19→21:23)
[2020-12-21] MEDS: MoRPHine SULFATE CR 15 MG TABCR PO SCH ×2 (08:19→21:21)
[2020-12-21] MEDS: PANTOprazole 40 MG TAB PO SCH (08:19)
[2020-12-21] MEDS: DOCUSATE SODIUM 100 MG CAP PO SCH ×2 (08:19→21:24)
[2020-12-21] MEDS: FAMOTIDINE 20 MG TAB PO SCH (08:20)
[2020-12-21] MEDS: FOLIC ACID 1 MG TAB PO SCH (08:20)
[2020-12-21] MEDS: AZITHROMYCIN 250 MG TAB PO SCH (08:20)
[2020-12-21] MEDS: DULoxetine HCL 20 MG CAP PO SCH (08:20)
[2020-12-21] MEDS: METOPROLOL SUCC 25MG EXT REL TAB PO SCH (08:21)
[2020-12-21] MEDS: CLOPIDOGREL BISULFATE 75 MG TAB PO SCH (08:21)
[2020-12-21] MEDS: NICOTINE 14 MG/24 HR PATCH TD SCH (08:22)
[2020-12-21] MEDS: lisinopril 2.5 MG TAB PO SCH (08:22)
[2020-12-21] MEDS: POLYETHYLENE (MIRALAX) 17 GM PACK PO PRN (09:12)
--- NOTE | 2020-12-21 11:34 | Hospitalist Progress Note ---
Date of Service December 21, 2020 Assessment & Plan (1) Pulmonary embolism: Patient with acute bilateral PEs. Occurred while on Eliquis - patient reports taking his medications as prescribed. No indication of right heart strain on echo. - Discussed with pulmonology & vascular who feel current management is appropriate; no indication for thrombolysis or thrombectomy. - Discussed with hematology on 12/19 -> Will have to consider this an Eliquis failure (due to Covid?). Transition to warfarin. - Follow results of Factor V, Prothrombin, Homocysteine, Protein C/S and Anti- thrombin III - Continue heparin gtt - Started warfarin - Monitor INR -> Only 1.3 today. Spoke with pharmacy. Will give warfarin 10 mg x 2 days (today and Tuesday), then go to 6 mg PO daily. Consult Dr. Manning. - Obtained records from [facility] and [place]: Found unresponsive on 2020 after fentanyl overdose. Taken to [facility] and found to have an LAD STEMI with one BMS to the LAD. He went into vfib arrest several times and cardiogenic shock required Impella from 07/22 - 07/28 & [facility] ECMO from 07/22 - 07/25. Required a percutaneous cholecystectomy tube on 08/01 for acalculous cholecystitis. Eventually discharged to [facility] on 08/08. On 12/02/2020, he was diagnosed with extensive DVT/PEs. On 12/04/2020, he underwent bilateral thrombectomy and bilateral external iliac-common femoral venous stenting and IVC filter placement at [facility]. (2) COVID-19: Patient with positive PCR Covid-19 test on 12/16. Last tested with PCR on 12/09 and was NEGATIVE. Negative antigen test on 12/15. He is not vaccinated. CTA wtih nodular subpleural consolidations possibly secondary to Covid. - Considered true, active infection -> Maintain isolation precautions - Given his hypoxemia on 12/16, started dexamethasone 6 mg PO x 10 days - STOPPED dexamethasone after 2 doses. The patient is not hypoxemic. (Sometimes wears O2 for comfort.) - Given overall stability, no indication for tocilizumab or remdesivir. - Added abx per pulmonology recommendation given his CT chest findings from 12/16. Finished abx on 12/21. (3) DVT (deep venous thrombosis): Acute extensive DVT of LLE while on Eliquis seen on Doppler on 12/16. - Management as above (4) Elevated troponin: Demand ischemia. No indication of ACS. Patient does have some pleuritic chest pain with his current PEs. - Trended troponins -> Stable at ~0.6. - Heparin gtt as above - Continue Plavix (5) Peripheral vascular disease: Chronic. Patient has bilateral external iliac-common femoral venous from [place] from 11/2020. - Continue Plavix, atorvastatin, & anticoagulation (6) History of seizures: Chronic. Seizure-free presently. - Continue Keppra (7) Cardiomyopathy: Reduced EF at 25 - 30%. EF in 11/2020 was <20%, so it appears EF is increasing. Due to STEMI and cardiogenic shock in 07/2020 as a result of his overdose. - Continue beta-deb, statin - Added lisinopril 2.5 mg PO daily for his heart failure on 12/21 - BP will not tolerate spironolactone at this time. - Monitor weights, careful with IV fluids, monitor I&Os - Appears euvolemic today. (8) DVT prophylaxis: On heparin gtt for PE Admission and Anticipated Discharge Date Admission Date: December 16, 2020 Subjective Pain is well-controlled today. He is up and moving around more. Doing well. Reports no fevers/chills, chest pain, shortness of breath, abdominal pain, nausea, or vomiting. Physical Exam Constitutional: WD/WN, vitals as above no acute distress Eyes: EOM intact bilaterally; no conjunctival abnormality ENMT: external ear and nose normal, oropharynx normal Neck: trachea midline, no thyromegaly normal visual inspection Respiratory: normal respiratory effort, lungs clear to auscultation no respiratory distress Cardiovascular: RRR, no murmur, no edema Gastrointestinal (Abdomen): Inspection/Auscultation: abdomen normal to inspection; abdomen not distended Musculoskeletal: no cyanosis or clubbing, extremities motor strength 5/5 Skin: no rashes, warm and dry Neurologic: moves all extremities and awake Motor/Sensory: + sensory deficit (Reports numbness to light touch on the left thigh circumferentially) Psychiatric: Orientation: alert, oriented to person and cooperative Results & Data Results & Data ([facility]) Vital Signs (Past 12 Hours) Vital Signs Temp Pulse Pulse Resp BP Pulse Ox 12/21/20 07:11 105 H 12/21/20 03:18 36.7 C 74 16 98/66 L 98 12/21/20 00:00 36.5 C 75 16 95/68 L 97 PG Care Time/CCT Total # of Minutes Spent Total Time Spent with Patient: Total time spent is greater than 50% in coordination of care (as documented) at patient's floor/unit and/or counseling patient: Coding Level of Care Code 83274 Subseq Hosp Care Lvl 3 Diagnoses Pulmonary embolism I26.99 Pulmonary embolism type: unspecified Chronicity: acute Acute cor pulmonale presence: unspecified COVID-19 U07.1 DVT (deep venous thrombosis) I82.402 DVT location: lower extremity Affected thrombotic vein of extremity: unspecified vein of extremity Chronicity: acute Laterality: left Elevated troponin R77.8 Peripheral vascular disease I73.9 History of seizures Z87.898 Cardiomyopathy I42.9 DVT prophylaxis Z29.9 (1) Pulmonary embolism Pulmonary embolism type: unspecified Chronicity: acute Acute cor pulmonale presence: unspecified Qualified Code(s): I26.99 - Other pulmonary embolism without acute cor pulmonale (2) DVT (deep venous thrombosis) DVT location: lower extremity Affected thrombotic vein of extremity: unspecified vein of extremity Chronicity: acute Laterality: left Qualified Code(s): I82.402 - Acute embolism and thrombosis of unspecified deep veins of left lower extremity
[2020-12-21] MEDS: WARFARIN SOD 10 MG TAB PO SCH (15:30)
[2020-12-22] MEDS: MoRPHine SULFATE 4 MG/ML 1 ML CARP\\VIAL IV PRN ×5 (02:56→21:40)
[2020-12-22 08:30] LABS: Hematocrit (blood only) 35.9 % (42-52); Hemoglobin 11.4 g/dL (14.0-18.0); Mean Corpuscular Hgb Conc 31.8 g/dL (32-36); Mean Corpuscular Volume 85.1 fL (80-100); Mean Platelet Volume 10.2 fL (7.4-10.4); Platelet Count 326 K/uL (130-400); RDW Coefficient of Variation 16.3 % (11.5-14.5); RDW Standard Deviation 50.8 fL (36.4-46.3); Red Blood Count 4.22 M/uL (4.7-6.1); White Blood Count 8.38 K/uL (4.8-10.8)
[2020-12-22 08:40] LABS: INR 1.4 (0.9-1.1); Prothrombin Time 14.2 Seconds (9.0-12.0)
[2020-12-22 09:01] LABS: BUN Creatinine Ratio 13.1 (10-20); Calcium 9.1 mg/dl (8.5-10.1); Creatinine Clr Calc Pharmacy 125.1 ml/min; Est GFR (African American) 123.5 ml/min; Est GFR (Non-African American) 106.6 ml/min; Magnesium 2.2 mg/dl (1.8-2.4); Potassium 4.1 mmol/L (3.5-5.1)
[2020-12-22] MEDS: FOLIC ACID 1 MG TAB PO SCH (09:15)
[2020-12-22] MEDS: METOPROLOL SUCC 25MG EXT REL TAB PO SCH (09:16)
[2020-12-22] MEDS: MoRPHine SULFATE CR 15 MG TABCR PO SCH ×2 (09:16→20:25)
[2020-12-22] MEDS: PANTOprazole 40 MG TAB PO SCH (09:17)
[2020-12-22] MEDS: FAMOTIDINE 20 MG TAB PO SCH (09:17)
[2020-12-22] MEDS: DULoxetine HCL 20 MG CAP PO SCH (09:17)
[2020-12-22] MEDS: CLOPIDOGREL BISULFATE 75 MG TAB PO SCH (09:17)
[2020-12-22] MEDS: GABAPENTIN 300 MG CAP PO SCH ×2 (09:18→14:35)
[2020-12-22] MEDS: levETIRAcetam 500 MG TAB PO SCH ×2 (09:19→21:40)
[2020-12-22] MEDS: ATORVASTATIN 40 MG TAB PO SCH (09:20)
[2020-12-22] MEDS: DOCUSATE SODIUM 100 MG CAP PO SCH ×2 (09:36→21:40)
[2020-12-22] MEDS: lisinopril 2.5 MG TAB PO SCH (09:36)
[2020-12-22] MEDS: NICOTINE 14 MG/24 HR PATCH TD SCH (09:37)
[2020-12-22 09:41] LABS: Partial Thromboplastin Ratio 1.8
[2020-12-22 09:42] LABS: Partial Thromboplastin Time 48.6 Seconds (21.0-31.0)
[2020-12-22] MEDS: POLYETHYLENE (MIRALAX) 17 GM PACK PO SCH (11:44)
[2020-12-22] MEDS: SENNA 8.6 MG TAB PO SCH (11:45)
[2020-12-22] MEDS: HEPARIN SODIUM/DEXTROSE 25,000 UNITS/500 ML BAG IV SCH ×2 (12:04→21:39)
--- NOTE | 2020-12-22 12:39 | Consultation Report ---
HEMATOLOGICAL CONSULTATION DATE OF CONSULTATION: 12/22/2020 REASON FOR CONSULTATION: Extensive DVT and pulmonary embolism in a 45-year-old gentleman with COVID-1 9. HISTORY OF PRESENT ILLNESS: I had actually visited with Dmitry about 4 days ago at the request of Dr. Jas Beverly to discern the duration of anticoagulation and anticoagulation selection moving forward . At that time, I interviewed this gentleman. His mental status was not optimal and thus, informati on imparted during the encounter was not reliable. I spoke to Dr. Beverly about this and he agreed th at I would take a compilation of medical records to discern exactly this gentleman's clinical course. He had presented to [facility] on 12/16 and apparently had been rehabilitating at [facility] at that time developed pain and tingling within the left lower extremity and thus was sent to the Emergency Room. In summary, via records from both [facility] and [facility], this gentleman was found unresponsive on 07/22 after fentanyl overdose. He was taken t o [facility], found to have a left anterior descending STEMI with one BMS to the LAD. He appa rently went into V-fib arrest several times, cardiogenic shock, required Impella from 07/22 to 07/28 and [facility] ECMO from 07/22 to 07/25. He subsequently underwent percutaneous cholecystostomy tube on 07/14 9 for acalculous cholecystitis, eventually discharged [facility] 08/[facility]. On 12/02, he was diagnosed with extensive DVT and PEs. Underwent bilateral thrombectomy and bilateral external iliac common femoral venous stenting with IVC filter placement at [facility]. Complicating matter is this gentleman presented during this admission for a positive PCR COVID-19. He apparently had a n egative antigen test the day before and was not vaccinated. Thus, he was placed on intravenous hepar in and converted to Coumadin at my suggestion. There was a question of anticoagulant failure that wa s not documented in any medical records, this information was imparted by the patient himself. Thus, Dopplers and CTA of the chest confirmed on this admission, he has an extensive left lower extremity DVT almost the entire length of the extremity with significant thrombotic burden within the chest. PAST MEDICAL HISTORY: Significant for seizure disorder, cardiomyopathy, elevated troponin, DVT, COVI D-19, and pulmonary embolism. MEDICATIONS PRIOR TO ADMISSION: Thiamine 100 mg p.o. daily, Senokot S 1 tablet p.o. daily p.r.n., Mi raLax 17 g p.o. p.r.n., Protonix 40 mg p.o. daily, nicotine transdermal patch once daily, morphine 10 mg p.o. q.4 hours p.r.n., MS Contin 15 mg p.o. q.12 hours, metoprolol 25 mg p.o. daily, Milk of Magn esia 30 mL p.o. daily p.r.n., Lidoderm patch topically daily, Keppra 500 mg p.o. q.12 hours, gabapent in 300 mg p.o. t.i.d., Lasix 20 mg p.o. daily p.r.n., folic acid 1 mg p.o. daily, famotidine 20 mg p. o. daily, duloxetine 20 mg p.o. daily, docusate sodium 100 mg p.o. b.i.d., Plavix 75 mg p.o. daily, a torvastatin 40 mg p.o. daily, Eliquis 5 mg p.o. b.i.d. ALLERGIES: No known drug allergies. SOCIAL AND FAMILY HISTORY: Unobtainable. REVIEW OF SYSTEMS: Unobtainable because of his mental status. PHYSICAL EXAMINATION: GENERAL: First and foremost, he is a 45-year-old gentleman, awake and alert, in no acute d istress. VITAL SIGNS: Temperature 37.2, pulse 84, respiratory rate 16, blood pressure 97/63. SKIN: Warm, dry, noncyanotic without petechia, rash or ecchymosis. HEENT: Atraumatic, normocephalic. Eyes: PERRLA, EOMI. Sclerae are nonicteric. No conjunctival in jection. Nares are patent without rhinorrhea or discharge. Throat is clear. Tongue is midline. Mu cous membranes are moist. NECK: Supple without JVD or thyromegaly. LYMPHATICS: No cervical, supraclavicular, axillary or inguinal palpable nodes. HEART: Regular rate and rhythm. No clicks, rubs, murmurs or gallops. LUNGS: Clear to auscultation bilaterally. ABDOMEN: Soft, nontender, nondistended, without palpable hepatosplenomegaly. EXTREMITIES: No clubbing, cyanosis or edema. NEUROLOGICAL: He is awake, alert and oriented x3. RADIOGRAPHIC DATA: CTA of the chest: Extensive bilateral pulmonary emboli as above, greatest in the right lower lobe pulmonary artery. Doppler study: Extensive and occlusive deep vein thrombosis seen throughout the left lower extremity. LABORATORY DATA: As of 12/21, WBC count 9640, hemoglobin 10.9, platelet count 308,000. PTT 50.4 sec onds on heparin. Sodium 141, potassium 4.0, chloride 106, carbon dioxide 31, creatinine 0.88, BUN 14 . IMPRESSION: 1. Pulmonary embolism, extensive, and extensive left lower extremity deep venous thrombosis. 2. COVID-19. 3. Cardiomyopathy. PLAN: I have been asked to render an opinion regarding the choice of anticoagulation and duration. First and foremost, this gentleman apparently has history of opioid abuse and other psychiatric issue s. He suffered a pretty significant myocardial infarction early on and suffers from ischemic cardiom yopathy with an EF of between 20% and 30%. The extensiveness of his DVT and pulmonary embolism warra nts a prolonged anticoagulation, perhaps permanent moving forward. I have recommended Mr. Puente be referred to the anticoagulation clinic for a strict management of INR once successfully converted to warfarin. Goal INR of 2.5 to 3.5 is optimal. I believe he is in the middle of converting at this ti me and probably will be discharged within the next couple of days. Hypercoag panel probably would no t impart any significant information at least in regards to my decision to maintain indefinite antico agulation moving forward. Dr. Manning may differ in that opinion, which is certainly her option movi ng forward. That said, I have nothing further to add. If there are any questions or concerns, pretty valero feel free to contact me at any time. Job ID: [id number]
[2020-12-22] MEDS: WARFARIN SOD 10 MG TAB PO SCH (15:47)
[2020-12-22] MEDS ORDERED: OPTIRAY 320 100ml IV ONE (19:34)
--- NOTE | 2020-12-22 20:09 | CT Scan Report ---
CT pelvis w/IV con only CLINICAL HISTORY: L thigh numbness; ?L fem nerve compression? COMPARISON STUDY: No previous studies for comparison. TECHNIQUE: Axial images of the pelvis were obtained following intravenous injection of 90 cc of Optir ay 320 IV. Automated exposure control was utilized for the study. A dose lowering technique was util ized adhering to the principles of ALARA. FINDINGS: Visualized portions of the inferior kidneys are unremarkable. The caliber and wall thicknes s of visualized small and large bowel are normal. The appendix is normal. There may be a small fat-co ntaining right inguinal hernia. No pelvic hematoma or mass is identified. There is subtle subcutaneou s stranding of the left groin which likely reflects postsurgical change. Bilateral iliac vein stents are in place. Patency is difficult to assess given phase of enhancement on this exam but these appear grossly patent. No pseudoaneurysm is identified within the groin. There is no lymphadenopathy. No ac washoe fracture or suspicious lesion is identified within the visualized skeletal structures. IMPRESSION: 1. No pelvic or groin hematoma or mass. 2. Bilateral iliac vein stents in place. Patency difficult to assess given phase of enhancement but l ikely patent. 3. Mild subcutaneous stranding of the left groin which is likely postsurgical. ACT 112: Negative or not required by law. Electronically signed by: Richie Hanna M.D. 12/22/2020 8:07 PM
[2020-12-22] MEDS: GABAPENTIN 400 MG CAP PO SCH (21:39)
--- NOTE | 2020-12-22 22:46 | Hospitalist Progress Note ---
Date of Service December 22, 2020 Assessment & Plan (1) Numbness of left anterior thigh: suspect femoral nerve entrapment/compression on left. will start with CT pelvis with contrast. r/o hematoma from recent DVT intervention/thrombectomy. if negative then will check the lumbar spine with MRI. if still negative - lateral femoral cutaneous nerve syndrome? I do not think this represents a MARBLE CUTTER disturbance in brain. does not fit any pattern based on sensory pathways in brain. increase gabapentin. consider increase in cymbalta as well. (2) Pulmonary embolism: dx in early November at [facility]. then dx with b/l DVTs during same stay leading to extensive intervention to those DVTs with IVC filter placement, thrombectomy, venous stents, etc. Has been on eliquis since then. Probably not a treatment failure, but safest option given the complexity of his situation is lifelong coumadin use with INR goal of 2.5 to [address] Magana. Factor V, Prothrombin, Homocysteine, Protein C/S and Anti-thrombin III are pending. Cont heparin drip. Cont warfarin - s/p 10mg on 12/21 and 12/22, then back to 6mg daily tomorrow. Monitor INR daily. Outside records from [facility] and [facility]: Found unresponsive on 07/22/2020 after fentanyl overdose. Taken to [facility] and found to have an LAD STEMI with one BMS to the LAD. He went into vfib arrest several times and cardiogenic shock required Impella from 07/22 - 07/28 & [facility] from 07/22 - 07/25. Required a percutaneous cholecystectomy tube on 08/01 for acalculous cholecystitis. Eventually discharged to [facility] on 08/08. On 12/02/2020, he was diagnosed with extensive DVT/PEs. On 12/04/2020, he underwent bilateral thrombectomy and bilateral external iliac-common femoral venous stenting and IVC filter placement at [facility]. (3) Pneumonia due to COVID-19 virus: CTA chest with b/l nodular infiltrates - could be COVID-19 itself. These infiltrates could be causing pain. Can't rule out that they are small infarcts. Repeat cxr in am. Flutter valve, incentive, and trial of proning to improve his air movement and overall breathing. Fortunately his O2 sats are stable in RA. No indication for decadron/other agents at this time. (4) DVT (deep venous thrombosis): Acute extensive DVT of LLE - as seen on dopplers this admission. I reviewed his records - the November dopplers at [facility] showed similar DVT findings. However, he had thrombectomies and venous stents thus the doppler here should have looked much better given he had extensive intervention of the prior DVTs. He had been on Eliquis since his November hospital stay. Switched to coumadin with heparin bridging. Heme/onc (Dr magana) advising coumadin with INR goal 2.5 to 3.5 -- probably lifelong. (5) Elevated troponin: Myocardial Demand ischemia. No indication of ACS. Patient does have some pleuritic chest pain with his PEs. Cont his normal cardiac meds including plavix. Need for asa?? (6) Peripheral vascular disease: In the setting of b/l extensive LE DVTs patient underwent common femoral- popliteal thrombectomies along with bilateral ileal-femoral vein stents along with IVC filter placement on 12/03/20 at [facility]. Continue Plavix, atorvastatin, & heparin/coumadin. (7) History of seizures: Chronic. Seizure-free presently. Continue Keppra. (8) Cardiomyopathy: Reduced EF at 25 - 30%. EF in 11/2020 was <20%, so it appears EF is increasing. Due to STEMI and cardiogenic shock in 07/2020 as a result of his overdose. Continue beta-deb, statin, low-dose DUSTY. Compensated. (9) CAD (coronary artery disease): as above (10) DVT prophylaxis: heparin w/ coumadin Admission and Anticipated Discharge Date Admission Date: December 16, 2020 Subjective pt c/o persistent left anterior thigh numbness with some discomfort; numbness is primarily anterior, but does wrap around to the back of the leg. extends from the left groin to the knee. tib-fib / li region feels normal. no leg weakness b/l. voiding fine. also c/o dyspnea and pleuritic pain. denies significant cough. eating well. no fevers. with respect to numbness -- present for 5-7 days (was having it at [facility]). initially coming/going, but now persistent since this am. no numbness in any other location (arms, face, right side of body, etc). Review of Systems Constitutional: no fever, no chills, no body aches, no fatigue, no weakness and no anorexia Respiratory: + dyspnea on exertion and + pain on inspiration Cardiovascular: as per Subjective / HPI, + chest pain and + edema (left leg - mild ) Gastrointestinal: no abdominal pain, no nausea and no vomiting Physical Exam Constitutional: no acute distress and no altered mental status ENMT: external ear and nose normal, oropharynx normal Respiratory: no respiratory distress Auscultation: + diminished lung sounds (bases) and + crackles (bases ) Cardiovascular: Rate/Rhythm: regular rate and regular rhythm Heart Sounds: normal S1 and normal S2; no murmur Vessels: posterior tibial pulses present, dorsalis pedis pulses present and popliteal pulses present; no JVD Extremities: + edema (trace - LLE) Gastrointestinal (Abdomen): normal bowel sounds, soft, nontender, no hepatosplenomegaly Inspection/Auscultation: + abdomen distended (mild) Musculoskeletal: full ROM of left hip and left knee Skin: no rash; no hematoma in left groin region Neurologic: decreased sensation to light touch over L2 and L3 dermatomes on left thigh; normal right thigh and right/left li; normal strength b/l legs; normal strength b/l arms; no facial droop; fluent speech Psychiatric: A+Ox3, euthymic affect Results & Data Results & Data ([facility]) Vital Signs (Past 12 Hours) Vital Signs Temp Pulse Pulse Pulse Resp BP BP 12/22/20 19:15 37.0 C 89 16 115/73 12/22/20 14:30 36.5 C 93 H 18 94/59 L 12/22/20 14:26 83 Pulse Ox 12/22/20 19:15 97 12/22/20 14:30 100 12/22/20 14:26 Laboratory Results Laboratory Results - last 24 hr 12/22/20 12/22/20 12/22/20 07:50 07:50 07:50 WBC 8.38 RBC 4.22 L Hgb 11.4 L Hct 35.9 L MCV 85.1 MCH 27.0 MCHC 31.8 L RDW Std Deviation 50.8 H RDW Coeff of Megan 16.3 H Plt Count 326 MPV 10.2 PT 14.2 H INR 1.4 H APTT PTT Ratio Sodium 139 Potassium 4.1 Chloride 105 Carbon Dioxide 30 Anion Gap 5.0 BUN 11 Creatinine 0.81 Est Cr Clr Drug Dosing 125.1 Est GFR ( Amer) 123.5 Est GFR (Non-Af Amer) 106.6 BUN/Creatinine Ratio 13.1 Glucose 87 Calcium 9.1 Magnesium 2.2 12/22/20 07:50 WBC RBC Hgb Hct MCV MCH MCHC RDW Std Deviation RDW Coeff of Megan Plt Count MPV PT INR APTT 48.6 H* PTT Ratio 1.8 Sodium Potassium Chloride Carbon Dioxide Anion Gap BUN Creatinine Est Cr Clr Drug Dosing Est GFR ( Amer) Est GFR (Non-Af Amer) BUN/Creatinine Ratio Glucose Calcium Magnesium PG Care Time/CCT Total # of Minutes Spent Total Time Spent with Patient: Total time spent is greater than 50% in coordination of care (as documented) at patient's floor/unit and/or counseling patient: Coding Level of Care Code 64976 Subseq Hosp Care Lvl 3 Diagnoses Numbness of left anterior thigh R20.0 Pulmonary embolism I26.99 Acute cor pulmonale presence: unspecified Chronicity: acute Pulmonary embolism type: unspecified Pneumonia due to COVID-19 virus U07.1; J12.82 DVT (deep venous thrombosis) I82.402 Affected thrombotic vein of extremity: unspecified vein of extremity Chronicity: acute DVT location: lower extremity Laterality: left Elevated troponin R77.8 Peripheral vascular disease I73.9 History of seizures Z87.898 Cardiomyopathy I42.9 CAD (coronary artery disease) I25.10 DVT prophylaxis Z29.9 (1) DVT (deep venous thrombosis) Affected thrombotic vein of extremity: unspecified vein of extremity Chronicity: acute DVT location: lower extremity Laterality: left Qualified Code(s): I82.402 - Acute embolism and thrombosis of unspecified deep veins of left lower extremity (2) Pulmonary embolism Acute cor pulmonale presence: unspecified Chronicity: acute Pulmonary embolism type: unspecified Qualified Code(s): I26.99 - Other pulmonary embolism without acute cor pulmonale
[2020-12-23] MEDS: MoRPHine SULFATE 4 MG/ML 1 ML CARP\\VIAL IV PRN ×4 (01:28→15:23)
[2020-12-23 07:51] LABS: INR 1.7 (0.9-1.1); Partial Thromboplastin Ratio 2.3; Prothrombin Time 16.5 Seconds (9.0-12.0)
[2020-12-23 07:52] LABS: Partial Thromboplastin Time 60.1 Seconds (21.0-31.0)
[2020-12-23 08:08] LABS: BUN Creatinine Ratio 11.6 (10-20); Calcium 8.8 mg/dl (8.5-10.1); Creatinine Clr Calc Pharmacy 119.2 ml/min; Est GFR (African American) 121.1 ml/min; Est GFR (Non-African American) 104.5 ml/min; Potassium 3.8 mmol/L (3.5-5.1)
[2020-12-23] MEDS: CLOPIDOGREL BISULFATE 75 MG TAB PO SCH (08:50)
[2020-12-23] MEDS: FOLIC ACID 1 MG TAB PO SCH (08:50)
[2020-12-23] MEDS: SENNA 8.6 MG TAB PO SCH (08:50)
[2020-12-23] MEDS: ATORVASTATIN 40 MG TAB PO SCH (08:50)
[2020-12-23] MEDS: FAMOTIDINE 20 MG TAB PO SCH (08:50)
[2020-12-23] MEDS: DULoxetine HCL 20 MG CAP PO SCH (08:51)
[2020-12-23] MEDS: lisinopril 2.5 MG TAB PO SCH (08:51)
[2020-12-23] MEDS: MoRPHine SULFATE CR 15 MG TABCR PO SCH ×2 (08:51→21:26)
[2020-12-23] MEDS: POLYETHYLENE (MIRALAX) 17 GM PACK PO SCH (08:51)
[2020-12-23] MEDS: METOPROLOL SUCC 25MG EXT REL TAB PO SCH (08:51)
[2020-12-23] MEDS: levETIRAcetam 500 MG TAB PO SCH ×2 (08:52→21:26)
[2020-12-23] MEDS: NICOTINE 14 MG/24 HR PATCH TD SCH (08:52)
[2020-12-23] MEDS: GABAPENTIN 400 MG CAP PO SCH ×3 (08:52→21:27)
[2020-12-23] MEDS: DOCUSATE SODIUM 100 MG CAP PO SCH ×2 (09:11→21:28)
[2020-12-23] MEDS: HEPARIN SODIUM/DEXTROSE 25,000 UNITS/500 ML BAG IV SCH ×2 (11:08→15:28)
[2020-12-23] MEDS: PANTOprazole 40 MG TAB PO SCH (13:00)
[2020-12-23] MEDS ORDERED: WARFARIN SOD 6 MG TAB PO SCH (16:00)
--- NOTE | 2020-12-23 19:10 | XRay Report ---
ORBIT RADIOGRAPHS 3 VIEWS HISTORY: pre-MRI screening. COMPARISON: None. FINDINGS: There are no radiopaque foreign bodies identified within the orbits. IMPRESSION: No radiopaque foreign bodies identified within the orbits. ACT 112: Negative or not required by law. Electronically signed by: Colin Burrows M.D. 12/23/2020 7:08 PM
--- NOTE | 2020-12-23 19:16 | XRay Report ---
XR chest 2V PA/lateral CLINICAL HISTORY: COVID-19 pneumonia with PEs COMPARISON STUDY: 12/16/2020 FINDINGS: The heart is mildly enlarged. There are multifocal airspace opacities with a peripheral dis tribution consistent with a multifocal pneumonia. The findings are slightly progressive when compared the prior study. There is minor blunting of the right lateral costophrenic angle.[ IMPRESSION: 1. Cardiomegaly 2. Multifocal airspace opacities consistent with a multifocal pneumonia, slightly progressive when co mpared the prior 12/16/2020 study 3. Trace right pleural effusion ACT 112: Negative or not required by law. Electronically signed by: Colin Burrows M.D. 12/23/2020 7:15 PM
--- NOTE | 2020-12-23 20:28 | Magnetic Resonance Report ---
MR lumbar spine wo con CLINICAL HISTORY: Left-sided L2-3 radiculopathy. TECHNIQUE: Sagittal and axial T1, T2 and STIR images were obtained. COMPARISON STUDY: No previous studies for comparison. OBSERVATIONS: The vertebral bodies and posterior elements appear intact. There is no abnormal bony signal present t o suggest a marrow replacement process. L1-2: There is disc desiccation. There is a circumferential disc bulge. There is no significant spina l or foraminal stenosis L2-3: There is disc desiccation. There is a circumferential disc bulge. There is mild spinal stenosis . There is no significant foraminal narrowing L3-4: There is disc degeneration. There is a circumferential disc bulge. Addition there is an extra f oraminal left lateral disc bulge/protrusion which abuts the left L3 nerve root. There is no significa nt spinal stenosis. There is mild bilateral foraminal narrowing L4-5: There is a circumferential disc bulge. There is mild spinal canal narrowing. There is no signif icant foraminal narrowing L5-S1: There is a circumferential disc bulge. There is no significant spinal stenosis. There is moder ate left-sided foraminal narrowing. The conus medullaris and cauda equina appear normal. IMPRESSION: 1. Moderate multilevel spondylytic changes 2. Multilevel disc bulges with mild spinal stenosis at the L2-3, and L4-5 levels 3. Moderate left-sided foraminal narrowing at the L5-S1 level, and mild bilateral foraminal narrowing at the L3-4 level. 4. Small left-sided extraforaminal disc bulge/protrusion on the left at the L3-4 level. This abuts bu t does not significantly displace the left L3 nerve root ACT 112: Negative or not required by law. Electronically signed by: Colin Burrows M.D. 12/23/2020 8:26 PM
[2020-12-23] MEDS: dexAMETHasone 4 MG in SYRINGE 0 ML IV SCH (22:56)
--- NOTE | 2020-12-24 01:30 | Hospitalist Progress Note ---
Date of Service December 23, 2020 Assessment & Plan (1) Lumbar radiculopathy, acute: acute left-sided L3 radiculopathy 2nd to herniated disc as seen on MRI today. this is the likely cause of his left thigh numbness and pain as his symptoms follow the L3 nerve root distribution. will start dexamethasone 4mg BID. this will also help COVID-19 pneumonia. Cont pain meds. Cont gabapentin. CT pelvis did NOT show femoral nerve compression from a hematoma, etc. (2) Numbness of left anterior thigh: see #1 above. continue gabapentin. consider increase in cymbalta as well from 20mg to 20mg BID. (3) Pulmonary embolism: dx in early November at [facility]. then dx with b/l DVTs during same stay leading to extensive intervention to those DVTs with IVC filter placement, thrombectomy, venous stents, etc. Has been on eliquis since then. Probably not a treatment failure, but safest option given the complexity of his situation is lifelong coumadin use with INR goal of 2.5 to [address] Magana. Factor V, Prothrombin, Homocysteine, Protein C/S and Anti-thrombin III are pending. Cont heparin drip. Cont warfarin - s/p 10mg on 12/21 and 12/22, then back to 6mg today. Monitor INR daily. If INR tomorrow is not changed will increase daily coumadin dose. Outside records from [facility]: Found unresponsive on 07/22/2020 after fentanyl overdose. Taken to [facility] and found to have an LAD STEMI with one BMS to the LAD. He went into vfib arrest several times and cardiogenic shock required Impella from 07/22 - 07/28 & [facility] from 07/22 - 07/25. Required a percutaneous cholecystectomy tube on 08/01 for acalculous cholecystitis. Eventually discharged to [facility] on 08/08. On 12/02/2020, he was diagnosed with extensive DVT/PEs. On 12/04/2020, he underwent bilateral thrombectomy and bilateral external iliac-common femoral venous stenting and IVC filter placement at [facility]. (4) Pneumonia due to COVID-19 virus: CTA chest with b/l nodular infiltrates - I believe this is due to COVID infection. These infiltrates could be causing pain. Can't rule out that they are small infarcts. Repeat cxr today worse which is c/w his symptoms. Decadron for #1 should help. STRONGLY ENCOURAGED him to continue to use incentive and flutter, OOB to chair BID-TID, etc. Nursing to encourage this. Fortunately his O2 sats are stable in RA. (5) DVT (deep venous thrombosis): Acute extensive DVT of LLE - as seen on dopplers this admission. I reviewed his records - the November dopplers at [facility] showed similar DVT findings. However, he had thrombectomies and venous stents thus the doppler here should have looked much better given he had extensive intervention of the prior DVTs. He had been on Eliquis since his November hospital stay. Switched to coumadin with heparin bridging. Heme/onc (Dr magana) advising coumadin with INR goal 2.5 to 3.5 -- probably lifelong. (6) Elevated troponin: Myocardial Demand ischemia. No indication of ACS. Cont his normal cardiac meds including plavix. Need for asa?? (7) Peripheral vascular disease: In the setting of b/l extensive LE DVTs patient underwent common femoral- popliteal thrombectomies along with bilateral ileal-femoral vein stents along with IVC filter placement on 12/03/20 at [facility]. Continue Plavix, atorvastatin, & heparin/coumadin. (8) History of seizures: Chronic. Seizure-free presently. Continue Keppra. (9) Cardiomyopathy: Reduced EF at 25 - 30%. EF in 11/2020 was <20%, so it appears EF is increasing. Due to STEMI and cardiogenic shock in 07/2020 as a result of his overdose. Continue beta-deb, statin, low-dose DUSTY. Compensated but with steroid use will resume lasix 20mg daily to prevent fluid retention from the steroids. (10) CAD (coronary artery disease): as above (11) DVT prophylaxis: heparin w/ coumadin Admission and Anticipated Discharge Date Admission Date: December 16, 2020 Subjective patient with ongoing numbness and pain in left thigh still with no numbness/pain in left distal leg below the knee, the right leg, or right arm still having significant difficulty with taking deep breaths due to pleuritic pain he is not using incentive spirometry or flutter valve stating they are too hard to do because of the pleuritic pain minimal cough no dyspnea at rest mild dyspnea with walking to bathroom eating ok nursing staff reporting he is not mobilizing and not getting into the chair Review of Systems Constitutional: no fever, no chills and no anorexia Respiratory: as per Subjective / HPI, + cough, + dyspnea and + pain on inspiration; no wheezing Cardiovascular: + chest pain and + edema (minimal ) Gastrointestinal: no abdominal pain, no nausea and no vomiting Physical Exam Constitutional: no acute distress and no altered mental status ENMT: external ear and nose normal, oropharynx normal Respiratory: no respiratory distress Auscultation: + diminished lung sounds (b/l, severely decreased air movement); no crackles and no wheezes Cardiovascular: Rate/Rhythm: regular rate and regular rhythm Heart Sounds: normal S1 and normal S2; no murmur Vessels: posterior tibial pulses present, dorsalis pedis pulses present and popliteal pulses present; no JVD Extremities: + edema (trace b/l legs) Gastrointestinal (Abdomen): normal bowel sounds, soft, nontender, no hepatosplenomegaly Inspection/Auscultation: + abdomen distended (mild) Neurologic: moves all extremities; no focal motor deficits (strength b/l legs near 5/5 ) Psychiatric: A+Ox3, euthymic affect Results & Data Results & Data ([facility]) Vital Signs (Past 12 Hours) Vital Signs Temp Pulse Pulse Pulse Resp BP BP 12/24/20 00:21 80 12/23/20 23:24 36.7 C 82 20 92/50 L 12/23/20 20:27 36.6 C 83 16 93/54 L 12/23/20 15:00 36.6 C 80 18 96/64 L 12/23/20 14:28 91 H Pulse Ox 12/24/20 00:21 12/23/20 23:24 97 12/23/20 20:27 97 12/23/20 15:00 96 12/23/20 14:28 Laboratory Results Laboratory Results - last 24 hr 12/23/20 12/23/20 07:13 07:13 PT 16.5 H INR 1.7 H APTT 60.1 H* PTT Ratio 2.3 Sodium 138 Potassium 3.8 Chloride 104 Carbon Dioxide 30 Anion Gap 4.0 BUN 10 Creatinine 0.85 Est Cr Clr Drug Dosing 119.2 Est GFR ( Amer) 121.1 Est GFR (Non-Af Amer) 104.5 BUN/Creatinine Ratio 11.6 Glucose 92 Calcium 8.8 Diagnostic Findings Orbit X-Ray 12/23/20 09:32 ORBIT RADIOGRAPHS 3 VIEWS HISTORY: pre-MRI screening. COMPARISON: None. FINDINGS: There are no radiopaque foreign bodies identified within the orbits. IMPRESSION: No radiopaque foreign bodies identified within the orbits. ACT 112: Negative or not required by law. Electronically signed by: Colin Burrows M.D. 12/23/2020 7:08 PM Lumbar Spine MRI 12/23/20 10:13 MR lumbar spine wo con CLINICAL HISTORY: Left-sided L2-3 radiculopathy. TECHNIQUE: Sagittal and axial T1, T2 and STIR images were obtained. COMPARISON STUDY: No previous studies for comparison. OBSERVATIONS: The vertebral bodies and posterior elements appear intact. There is no abnormal bony signal present to suggest a marrow replacement process. L1-2: There is disc desiccation. There is a circumferential disc bulge. There is no significant spinal or foraminal stenosis L2-3: There is disc desiccation. There is a circumferential disc bulge. There is mild spinal stenosis. There is no significant foraminal narrowing L3-4: There is disc degeneration. There is a circumferential disc bulge. Addition there is an extra foraminal left lateral disc bulge/protrusion which abuts the left L3 nerve root. There is no significant spinal stenosis. There is mild bilateral foraminal narrowing L4-5: There is a circumferential disc bulge. There is mild spinal canal narrowin g. There is no significant foraminal narrowing L5-S1: There is a circumferential disc bulge. There is no significant spinal stenosis. There is moderate left-sided foraminal narrowing. The conus medullaris and cauda equina appear normal. IMPRESSION: 1. Moderate multilevel spondylytic changes 2. Multilevel disc bulges with mild spinal stenosis at the L2-3, and L4-5 levels 3. Moderate left-sided foraminal narrowing at the L5-S1 level, and mild bilateral foraminal narrowing at the L3-4 level. 4. Small left-sided extraforaminal disc bulge/protrusion on the left at the L3-4 level. This abuts but does not significantly displace the left L3 nerve root ACT 112: Negative or not required by law. Electronically signed by: Colin Burrows M.D. 12/23/2020 8:26 PM Chest X-Ray 12/23/20 11:40 XR chest 2V PA/lateral CLINICAL HISTORY: COVID-19 pneumonia with PEs COMPARISON STUDY: 12/16/2020 FINDINGS: The heart is mildly enlarged. There are multifocal airspace opacities with a peripheral distribution consistent with a multifocal pneumonia. The findings are slightly progressive when compared the prior study. There is minor blunting of the right lateral costophrenic angle.[ IMPRESSION: 1. Cardiomegaly 2. Multifocal airspace opacities consistent with a multifocal pneumonia, slightly progressive when compared the prior 12/16/2020 study 3. Trace right pleural effusion ACT 112: Negative or not required by law. Electronically signed by: Colin Burrows M.D. 12/23/2020 7:15 PM PG Care Time/CCT Total # of Minutes Spent Total Time Spent with Patient: Total time spent is greater than 50% in coordination of care (as documented) at patient's floor/unit and/or counseling patient: Coding Level of Care Code 71988 Subseq Hosp Care Lvl 3 Diagnoses Lumbar radiculopathy, acute M54.16 Numbness of left anterior thigh R20.0 Pulmonary embolism I26.99 Acute cor pulmonale presence: unspecified Chronicity: acute Pulmonary embolism type: unspecified Pneumonia due to COVID-19 virus U07.1; J12.82 DVT (deep venous thrombosis) I82.402 Affected thrombotic vein of extremity: unspecified vein of extremity Chronicity: acute DVT location: lower extremity Laterality: left Elevated troponin R77.8 Peripheral vascular disease I73.9 History of seizures Z87.898 Cardiomyopathy I42.9 CAD (coronary artery disease) I25.10 DVT prophylaxis Z29.9 (1) DVT (deep venous thrombosis) Affected thrombotic vein of extremity: unspecified vein of extremity Chronicity: acute DVT location: lower extremity Laterality: left Qualified Code(s): I82.402 - Acute embolism and thrombosis of unspecified deep veins of left lower extremity (2) Pulmonary embolism Acute cor pulmonale presence: unspecified Chronicity: acute Pulmonary embolism type: unspecified Qualified Code(s): I26.99 - Other pulmonary embolism without acute cor pulmonale
[2020-12-24] MEDS: MoRPHine SULFATE 4 MG/ML 1 ML CARP\\VIAL IV PRN ×4 (04:45→22:29)
[2020-12-24 04:58] LABS: BUN Creatinine Ratio 13.3 (10-20); Creatinine Clr Calc Pharmacy 111.3 ml/min; Est GFR (African American) 116.7 ml/min; Est GFR (Non-African American) 100.7 ml/min; Potassium 4.1 mmol/L (3.5-5.1)
[2020-12-24 05:04] LABS: INR 1.8 (0.9-1.1); Partial Thromboplastin Ratio 2.2; Prothrombin Time 17.3 Seconds (9.0-12.0)
[2020-12-24 05:08] LABS: Partial Thromboplastin Time 56.9 Seconds (21.0-31.0)
[2020-12-24] MEDS: HEPARIN SODIUM/DEXTROSE 25,000 UNITS/500 ML BAG IV SCH ×2 (05:21→18:48)
[2020-12-24] MEDS: ATORVASTATIN 40 MG TAB PO SCH (09:54)
[2020-12-24] MEDS: DULoxetine HCL 20 MG CAP PO SCH (09:54)
[2020-12-24] MEDS: FAMOTIDINE 20 MG TAB PO SCH (09:54)
[2020-12-24] MEDS: CLOPIDOGREL BISULFATE 75 MG TAB PO SCH (09:54)
[2020-12-24] MEDS: FOLIC ACID 1 MG TAB PO SCH (09:54)
[2020-12-24] MEDS: GABAPENTIN 400 MG CAP PO SCH ×3 (09:55→20:43)
[2020-12-24] MEDS: lisinopril 2.5 MG TAB PO SCH (09:55)
[2020-12-24] MEDS: levETIRAcetam 500 MG TAB PO SCH ×2 (09:55→20:43)
[2020-12-24] MEDS: METOPROLOL SUCC 25MG EXT REL TAB PO SCH (09:55)
[2020-12-24] MEDS: NICOTINE 14 MG/24 HR PATCH TD SCH (09:55)
[2020-12-24] MEDS: SENNA 8.6 MG TAB PO SCH (09:56)
[2020-12-24] MEDS: POLYETHYLENE (MIRALAX) 17 GM PACK PO SCH (09:56)
[2020-12-24] MEDS: PANTOprazole 40 MG TAB PO SCH (09:56)
[2020-12-24] MEDS: MoRPHine SULFATE CR 15 MG TABCR PO SCH ×2 (10:18→20:43)
[2020-12-24] MEDS: DOCUSATE SODIUM 100 MG CAP PO SCH ×2 (10:18→20:43)
[2020-12-24] MEDS: FUROSEMIDE 20 MG TAB PO SCH (10:18)
[2020-12-24] MEDS: dexAMETHasone 4 MG in SYRINGE 0 ML IV SCH ×2 (10:18→20:43)
[2020-12-24] MEDS ORDERED: WARFARIN SOD 10 MG TAB PO ONE (16:00)
--- NOTE | 2020-12-24 23:07 | Hospitalist Progress Note ---
Date of Service December 24, 2020 Assessment & Plan (1) Lumbar radiculopathy, acute: Plan: left-sided L3 nerve root compression 2nd to herniated disc. this is the cause of left thigh numbness and pain. CT pelvis without hematoma that would compress the femoral nerve. (2) Numbness of left anterior thigh: Plan: as above (3) Pulmonary embolism: Plan: 11/2020 - initial dx at [facility] extensive b/l (4) Pneumonia due to COVID-19 virus: Plan: stable no o2 requirement steroids for left L3 nerve root impingement should help his pneumonia (5) DVT (deep venous thrombosis): Plan: extensive b/l - initial dx 11/2020 [facility] s/p thrombectomies, b/l iliac venous stents, s/p IVC filter placement possible recurrent b/l DVTs while on eliquis at [facility] now on heparin drip with coumadin (6) Elevated troponin: Plan: myocardial demand ischemia (7) Peripheral vascular disease: (8) History of seizures: Plan: none while here (9) Cardiomyopathy: Plan: ischemic EF 30% remains on BB, DUSTY, lasix compensated (10) CAD (coronary artery disease): Plan: no ischemic symptoms remains on plavix, statin, BB Plan: 1. needs better pulmonary toilet - his pleuritic chest pain has led to poor pulmonary toilet. Cont incentive. Cont flutter. Add bronchodilators. Pain meds. 2. coumadin 10mg today, INR am; cont heparin. 3. Left L3 radiculopathy - decadron 4mg IV BID; gabapentin 400 TID; cymbalta; pain meds. 4. low-normal BPs - adjust BB and DUSTY. but cont lasix to maintain euvolemia in setting of chronic systolic CHF. 5. cont bowel maintenance due to chronic narcotic usage. 6. PT, OT. attempted to call pt's father - Reyes Puente, - no answer, could not leave message. spoke with pt's sister and gave extensive update today. Admission and Anticipated Discharge Date Admission Date: December 16, 2020 Subjective sitting at side of bed upon my arrival left leg numbness/pain is unchanged breathing and pleuritic chest pain is unchanged eating fine drinking fine no dyspnea at rest occasional TRINIDAD not performing incentive or flutter valve tele - stable, NSR, no dysrhythmia Review of Systems Constitutional: + weakness; no fever, no chills, no body aches and no anorexia Respiratory: + cough, + dyspnea on exertion and + pain on inspiration; no hemoptysis Cardiovascular: as per Subjective / HPI, + chest pain and + edema (minimal legs) Gastrointestinal: no abdominal pain, no nausea, no vomiting, no constipation and no diarrhea/loose stools Neurologic: + tingling (left thigh - no change ) Physical Exam Constitutional: no acute distress and no altered mental status ENMT: external ear and nose normal, oropharynx normal Respiratory: no respiratory distress Auscultation: + diminished lung sounds (b/l, severely decreased air movement - similar to yesterday ); no crackles and no wheezes Cardiovascular: Rate/Rhythm: regular rate and regular rhythm Heart Sounds: normal S1 and normal S2; no murmur Vessels: posterior tibial pulses present and dorsalis pedis pulses present; no JVD Extremities: + edema (trace b/l legs) Gastrointestinal (Abdomen): normal bowel sounds, soft, nontender, no hepatosplenomegaly Neurologic: moves all extremities; no focal motor deficits (strength b/l legs 5/5 including hip flexion & dorsiflexion/plantarflex feet) Psychiatric: A+Ox3, euthymic affect Results & Data Results & Data ([facility]) Vital Signs (Past 12 Hours) Vital Signs Temp Pulse Pulse Pulse Resp BP Pulse Ox 12/24/20 22:33 36.5 C 84 14 92/62 L 98 12/24/20 19:00 36.6 C 82 18 93/57 L 98 12/24/20 18:36 36.4 C L 88 18 90/55 L 97 12/24/20 16:20 36.5 C 74 20 100/70 100 12/24/20 15:17 76 12/24/20 12:11 36.6 C 81 20 109/75 98 Laboratory Results Laboratory Results - last 24 hr 12/24/20 12/24/20 04:32 04:32 PT 17.3 H INR 1.8 H APTT 56.9 H* PTT Ratio 2.2 Sodium 137 Potassium 4.1 Chloride 105 Carbon Dioxide 31 Anion Gap 1.0 L BUN 12 Creatinine 0.91 Est Cr Clr Drug Dosing 111.3 Est GFR ( Amer) 116.7 Est GFR (Non-Af Amer) 100.7 BUN/Creatinine Ratio 13.3 Glucose 92 Calcium 9.0 PG Care Time/CCT Total # of Minutes Spent Total Time Spent with Patient: Total time spent is greater than 50% in coordination of care (as documented) at patient's floor/unit and/or counseling patient: Coding Level of Care Code 07617 Subseq Hosp Care Lvl 3 Diagnoses Lumbar radiculopathy, acute M54.16 Numbness of left anterior thigh R20.0 Pulmonary embolism I26.99 Acute cor pulmonale presence: unspecified Chronicity: acute Pulmonary embolism type: unspecified Pneumonia due to COVID-19 virus U07.1; J12.82 DVT (deep venous thrombosis) I82.402 Affected thrombotic vein of extremity: unspecified vein of extremity Chronicity: acute DVT location: lower extremity Laterality: left Elevated troponin R77.8 Peripheral vascular disease I73.9 History of seizures Z87.898 Cardiomyopathy I42.9 CAD (coronary artery disease) I25.10 (1) DVT (deep venous thrombosis) Affected thrombotic vein of extremity: unspecified vein of extremity Chronicity: acute DVT location: lower extremity Laterality: left Qualified Code(s): I82.402 - Acute embolism and thrombosis of unspecified deep veins of left lower extremity (2) Pulmonary embolism Acute cor pulmonale presence: unspecified Chronicity: acute Pulmonary embolism type: unspecified Qualified Code(s): I26.99 - Other pulmonary embolism without acute cor pulmonale
[2020-12-25] MEDS: MoRPHine SULFATE 4 MG/ML 1 ML CARP\\VIAL IV PRN ×4 (04:11→23:10)
[2020-12-25 08:07] LABS: INR 1.8 (0.9-1.1); Partial Thromboplastin Ratio 2.3; Prothrombin Time 17.7 Seconds (9.0-12.0)
[2020-12-25 08:15] LABS: Partial Thromboplastin Time 61.7 Seconds (21.0-31.0)
[2020-12-25] MEDS: POLYETHYLENE (MIRALAX) 17 GM PACK PO SCH (08:31)
[2020-12-25] MEDS: DOCUSATE SODIUM 100 MG CAP PO SCH ×2 (08:31→20:41)
[2020-12-25] MEDS: MoRPHine SULFATE CR 15 MG TABCR PO SCH ×2 (08:32→20:41)
[2020-12-25] MEDS: FOLIC ACID 1 MG TAB PO SCH (08:32)
[2020-12-25] MEDS: CLOPIDOGREL BISULFATE 75 MG TAB PO SCH (08:32)
[2020-12-25] MEDS: dexAMETHasone 4 MG in SYRINGE 0 ML IV SCH ×2 (08:32→20:40)
[2020-12-25] MEDS: FUROSEMIDE 20 MG TAB PO SCH (08:33)
[2020-12-25] MEDS: DULoxetine HCL 20 MG CAP PO SCH (08:33)
[2020-12-25] MEDS: GABAPENTIN 400 MG CAP PO SCH ×3 (08:33→20:42)
[2020-12-25] MEDS: PANTOprazole 40 MG TAB PO SCH (08:33)
[2020-12-25] MEDS: NICOTINE 14 MG/24 HR PATCH TD SCH (08:34)
[2020-12-25] MEDS: SENNA 8.6 MG TAB PO SCH (08:34)
[2020-12-25] MEDS: levETIRAcetam 500 MG TAB PO SCH ×2 (08:35→20:42)
[2020-12-25] MEDS: FAMOTIDINE 20 MG TAB PO SCH (08:35)
[2020-12-25] MEDS: ATORVASTATIN 40 MG TAB PO SCH (08:36)
[2020-12-25] MEDS: HEPARIN SODIUM/DEXTROSE 25,000 UNITS/500 ML BAG IV SCH ×2 (08:49→22:30)
[2020-12-25] MEDS: METOPROLOL SUCC 25MG EXT REL TAB PO SCH (08:52)
[2020-12-25] MEDS ORDERED: IPRATROPIUM BROMIDE/ALBUTEROL respimat INH INH SCH (09:00)
[2020-12-25] MEDS: IPRATROPIUM BROMIDE HFA INHALER INH SCH ×3 (11:08→20:07)
[2020-12-25] MEDS: ALBUTEROL HFA 8 GM INHALER INH SCH ×3 (11:08→20:08)
[2020-12-25] MEDS ORDERED: WARFARIN SOD 10 MG TAB PO SCH (16:00)
[2020-12-25] MEDS ORDERED: oxyCODONE/APAP 7.5/325MG TAB PO PRN (17:36)
--- NOTE | 2020-12-25 21:22 | Hospitalist Progress Note ---
Date of Service December 25, 2020 Assessment & Plan (1) Lumbar radiculopathy, acute: Plan: left-sided L3 nerve root compression 2nd to herniated disc. this is the cause of left thigh numbness and pain. CT pelvis without hematoma that would compress the femoral nerve. see plan below. (2) Numbness of left anterior thigh: Plan: as above (3) Pulmonary embolism: Plan: 11/2020 - initial dx at [facility] extensive b/l o2 sats stable in RA (4) Pneumonia due to COVID-19 virus: Plan: stable no o2 requirement steroids for left L3 nerve root impingement should help his pneumonia no clinical worsening over his 10 days here (5) DVT (deep venous thrombosis): Plan: extensive b/l - initial dx 11/2020 [facility] s/p thrombectomies, b/l iliac venous stents, s/p IVC filter placement possible recurrent b/l DVTs while on eliquis at [facility] now on heparin drip with coumadin (6) Elevated troponin: Plan: myocardial demand ischemia (7) Peripheral vascular disease: (8) History of seizures: Plan: none while here (9) Cardiomyopathy: Plan: ischemic EF 30% remains on BB, DUSTY, lasix compensated (10) CAD (coronary artery disease): Plan: no ischemic symptoms remains on plavix, statin, BB c/o pleuritic pain - this is likely combination of PEs, his COVID pneumonia, +/- pulmonary infarction EKG checked today - no ischemic changes, no signs of pericarditis Plan: 1. for improved pain control for chest and LLE - increase extended release mo rphine to 30mg BID. Add percocet 7.5mg q4h prn. Need to wean morphine IV off as he is approaching discharge. 2. coumadin 10mg today, INR am; cont heparin. Would transition to lovenox 1mg/kg bid tomorrow as his bridge. Needs 2 days of overlap therapy. 3. Left L3 radiculopathy - cont decadron 4mg IV BID; gabapentin 400 TID; cymbalta; pain meds as above. 4. low-normal BPs - holding DUSTY; lowered metoprolol to 12.5mg daily. lasix 20mg daily to keep euvolemic while on high-dose steroids. 5. cont bowel maintenance due to chronic narcotic usage. 6. PT, OT. 7. cont airborne isolation another 1-2 days attempted to call pt's father - Reyes Peunte, - no answer, could not leave message. 12/24 spoke with pt's sister and gave extensive update on 12/24 Admission and Anticipated Discharge Date Admission Date: December 16, 2020 Subjective tele overnight w/ NSR patient's condition unchanged left thigh numbness/pain is unchanged pleuritic chest pain is unchanged it does worsen with laying down in bed eating ok no significant cough staff report poor usage of incentive and flutter requiring frequent morphine for chest discomfort and left leg pain Review of Systems Constitutional: no fever, no chills, no body aches and no anorexia Ear, Nose, Mouth, Throat: no nasal congestion, no sore throat and no dysphagia Respiratory: + dyspnea on exertion (minimal) and + pain on inspiration; no cough, no hemoptysis and no wheezing Cardiovascular: as per Subjective / HPI, + chest pain and + edema (scant ) Gastrointestinal: no abdominal pain, no nausea, no vomiting and no constipation Musculoskeletal: + back pain (chronic ) Physical Exam Constitutional: no acute distress and no altered mental status looks good today ENMT: external ear and nose normal, oropharynx normal Respiratory: no respiratory distress Auscultation: + diminished lung sounds (b/l, modestly improved air movement today ); no crackles and no wheezes Cardiovascular: Rate/Rhythm: regular rate and regular rhythm Heart Sounds: normal S1 and normal S2; no murmur Vessels: posterior tibial pulses present and dorsalis pedis pulses present; no JVD Extremities: + edema (trace b/l legs) Gastrointestinal (Abdomen): normal bowel sounds, soft, nontender, no hepatosplenomegaly Neurologic: moves all extremities; no focal motor deficits (strength b/l legs 5/5 including hip flexion & dorsiflexion/plantarflex feet) Psychiatric: A+Ox3, euthymic affect Results & Data Results & Data ([facility]) Vital Signs (Past 12 Hours) Vital Signs Temp Pulse Pulse Resp BP BP Pulse Ox 12/25/20 20:11 98 H 18 96 12/25/20 19:00 36.5 C 97 H 18 93/52 L 97 12/25/20 15:45 97 H 18 97 12/25/20 15:28 91 H 12/25/20 12:17 36.5 C 91 H 18 103/69 97 12/25/20 11:10 91 H 18 97 Laboratory Results Laboratory Results - last 24 hr 12/25/20 07:14 PT 17.7 H INR 1.8 H APTT 61.7 H* PTT Ratio 2.3 PG Care Time/CCT Total # of Minutes Spent Total Time Spent with Patient: Total time spent is greater than 50% in coordination of care (as documented) at patient's floor/unit and/or counseling patient: Coding Level of Care Code 41960 Subseq Hosp Care Lvl 3 Diagnoses Lumbar radiculopathy, acute M54.16 Numbness of left anterior thigh R20.0 Pulmonary embolism I26.99 Acute cor pulmonale presence: unspecified Chronicity: acute Pulmonary embolism type: unspecified Pneumonia due to COVID-19 virus U07.1; J12.82 DVT (deep venous thrombosis) I82.402 Affected thrombotic vein of extremity: unspecified vein of extremity Chronicity: acute DVT location: lower extremity Laterality: left Elevated troponin R77.8 Peripheral vascular disease I73.9 History of seizures Z87.898 Cardiomyopathy I42.9 CAD (coronary artery disease) I25.10 (1) DVT (deep venous thrombosis) Affected thrombotic vein of extremity: unspecified vein of extremity Chronicity: acute DVT location: lower extremity Laterality: left Qualified Code(s): I82.402 - Acute embolism and thrombosis of unspecified deep veins of left lower extremity (2) Pulmonary embolism Acute cor pulmonale presence: unspecified Chronicity: acute Pulmonary embolism type: unspecified Qualified Code(s): I26.99 - Other pulmonary embolism without acute cor pulmonale
[2020-12-26] MEDS: NICOTINE 14 MG/24 HR PATCH TD SCH (07:22)
[2020-12-26] MEDS: POLYETHYLENE (MIRALAX) 17 GM PACK PO SCH (07:22)
[2020-12-26] MEDS: MoRPHine SULFATE CR 15 MG TABCR PO SCH ×2 (07:23→20:58)
[2020-12-26] MEDS: DOCUSATE SODIUM 100 MG CAP PO SCH ×2 (07:23→21:03)
[2020-12-26] MEDS: ATORVASTATIN 40 MG TAB PO SCH (07:24)
[2020-12-26] MEDS: levETIRAcetam 500 MG TAB PO SCH ×2 (07:24→20:58)
[2020-12-26] MEDS: SENNA 8.6 MG TAB PO SCH (07:24)
[2020-12-26] MEDS: GABAPENTIN 400 MG CAP PO SCH ×3 (07:25→20:59)
[2020-12-26] MEDS: CLOPIDOGREL BISULFATE 75 MG TAB PO SCH (07:25)
[2020-12-26] MEDS: FOLIC ACID 1 MG TAB PO SCH (07:25)
[2020-12-26] MEDS: PANTOprazole 40 MG TAB PO SCH (07:25)
[2020-12-26] MEDS: FUROSEMIDE 20 MG TAB PO SCH (07:26)
[2020-12-26] MEDS: DULoxetine HCL 20 MG CAP PO SCH (07:26)
[2020-12-26] MEDS: FAMOTIDINE 20 MG TAB PO SCH (07:26)
[2020-12-26] MEDS: dexAMETHasone 4 MG in SYRINGE 0 ML IV SCH ×2 (07:36→21:00)
[2020-12-26] MEDS: METOPROLOL SUCC 25MG EXT REL TAB PO SCH (07:36)
[2020-12-26] MEDS: ALBUTEROL HFA 8 GM INHALER INH SCH (07:53)
[2020-12-26] MEDS: IPRATROPIUM BROMIDE HFA INHALER INH SCH (07:54)
[2020-12-26] MEDS ORDERED: IPRATROPIUM BROMIDE HFA INHALER INH PRN (08:04)
[2020-12-26] MEDS ORDERED: ALBUTEROL HFA 8 GM INHALER INH PRN (08:04)
[2020-12-26 09:08] LABS: Hematocrit (blood only) 33.4 % (42-52); Hemoglobin 10.6 g/dL (14.0-18.0); Mean Corpuscular Hemoglobin 27.2 pg (25-34); Mean Corpuscular Hgb Conc 31.7 g/dL (32-36); Mean Corpuscular Volume 85.9 fL (80-100); Mean Platelet Volume 10.7 fL (7.4-10.4); Platelet Count 255 K/uL (130-400); RDW Coefficient of Variation 15.9 % (11.5-14.5); RDW Standard Deviation 50.5 fL (36.4-46.3); Red Blood Count 3.89 M/uL (4.7-6.1); White Blood Count 13.83 K/uL (4.8-10.8)
[2020-12-26 09:24] LABS: INR 2.7 (0.9-1.1); Partial Thromboplastin Ratio 2.7; Prothrombin Time 25.3 Seconds (9.0-12.0)
[2020-12-26 09:30] LABS: Partial Thromboplastin Time 72.3 Seconds (21.0-31.0)
[2020-12-26 09:34] LABS: BUN Creatinine Ratio 24.5 (10-20); Calcium 8.8 mg/dl (8.5-10.1); Creatinine Clr Calc Pharmacy 119.2 ml/min; Est GFR (African American) 121.1 ml/min; Est GFR (Non-African American) 104.5 ml/min; Potassium 4.1 mmol/L (3.5-5.1)
[2020-12-26] MEDS ORDERED: MoRPHine SULFATE 4 MG/ML 1 ML CARP\\VIAL IV PRN (10:08)
[2020-12-26] MEDS: MoRPHine SULFATE 4 MG/ML 1 ML CARP\\VIAL IV PRN (10:49)
[2020-12-26] MEDS: ENOXAPARIN 80 MG/0.8 ML SYR SQ SCH ×2 (11:43→21:00)
--- NOTE | 2020-12-26 13:08 | Electrocardiogram Report ---
Test Reason : Blood Pressure : / mmHG Vent. Rate : 081 BPM Atrial Rate : 081 BPM P-R Int : 170 ms QRS Dur : 098 ms QT Int : 350 ms P-R-T Axes : 059 007 117 degrees QTc Int : 406 ms Sinus rhythm with occasional Premature ventricular complexes Poor R wave progression, consider anterior MA vs. lead placement vs. LVH Nonspecific ST abnormality Abnormal ECG When compared with ECG of 16-DEC-2020 16:51, Premature ventricular complexes are now Present T wave inversion no longer evident in Anterior leads QT has shortened Confirmed by Kal Hightower ([id number]) on 12/26/2020 1:08:39 PM Referred By: REFERRED SELF Confirmed By:Raman Hightower
[2020-12-26] MEDS: oxyCODONE/ACETAMINOPHEN 10-325 TAB PO PRN ×2 (15:48→22:32)
[2020-12-26] MEDS ORDERED: WARFARIN SOD 7.5 MG TAB PO SCH (16:00)
[2020-12-26] MEDS: DOCUSATE SODIUM/SENNA 50/8.6MG TAB PO PRN (20:58)
--- NOTE | 2020-12-26 23:33 | Hospitalist Progress Note ---
Date of Service December 26, 2020 Assessment & Plan (1) Lumbar radiculopathy, acute: Plan: stable/seems improving with steroids & gabapentin. left-sided L3 nerve root compression 2nd to herniated disc. this is the cause of left thigh numbness and pain. CT pelvis without hematoma that would compress the femoral nerve. (2) Numbness of left anterior thigh: Plan: as above (3) Pulmonary embolism: Plan: 11/2020 - initial dx at [facility] extensive b/l o2 sats stable in RA pleurisy slowly improving (4) Pneumonia due to COVID-19 virus: Plan: stable no o2 requirement steroids for left L3 nerve root impingement likely helping his pneumonia no clinical worsening over his 10 days here (5) DVT (deep venous thrombosis): Plan: extensive b/l - initial dx 11/2020 [facility] s/p thrombectomies, b/l iliac venous stents, s/p IVC filter placement possible recurrent b/l DVTs while on eliquis at [facility] INR today 2.7 (INR goal 2.5 to 3.5) (6) Elevated troponin: Plan: myocardial demand ischemia (7) Peripheral vascular disease: Plan: iliac venous stents b/l - placed at [facility] for extensive b/l LE DVTs (8) History of seizures: Plan: none while here (9) Cardiomyopathy: Plan: ischemic EF 30% remains on BB and lasix DUSTY on hold 2nd to low BPs compensated (10) CAD (coronary artery disease): Plan: no ischemic symptoms remains on plavix, statin, BB c/o pleuritic pain - this is likely combination of PEs, his COVID pneumonia, +/- pulmonary infarction EKG checked yesterday - no ischemic changes, no signs of pericarditis Plan: 1. continue increased extended release morphine 30mg BID. Increase percocet to 10mg q4h prn. Need to wean morphine IV off as he is approaching discharge - will do that by tomorrow am. 2. reduce coumadin to 7.5mg starting today, INR am. Stop heparin drip. transition to lovenox 1mg/kg bid his bridge. Needs 2 days of "overlap therapy." 3. Left L3 radiculopathy - cont decadron 4mg IV BID; gabapentin 400 TID; cymbalta; pain meds as above. Likely can reduce decadron to 6mg/day starting tomorrow x 1 more week. 4. low-normal BPs - holding DUSTY; lowered metoprolol to 12.5mg daily. lasix 20mg daily to keep euvolemic while on high-dose steroids. 5. cont bowel maintenance due to chronic narcotic usage. 6. PT, OT. 7. cont airborne isolation another 1-2 days attempted to call pt's father - Reyes Puente, - 2 days ago. spoke with pt's sister and gave extensive update on 12/24 spoke with SW - can apply for auth for [facility] anticipate d/c this weekend Admission and Anticipated Discharge Date Admission Date: December 16, 2020 Subjective tele wnl overnight he overall feels good today still with pleuritic pains but these are improved, and he reports increased use of his incentive kathe and flutter valve left thigh numbness same, but left thigh pain improved ambulating eating well moving bowels no dyspnea Review of Systems Constitutional: + weakness ("legs feel like jello"); no fever, no chills, no body aches and no anorexia Respiratory: + pain on inspiration; no hemoptysis, no sputum production and no wheezing Cardiovascular: as per Subjective / HPI; no edema Gastrointestinal: no abdominal pain, no nausea, no vomiting, no constipation and no diarrhea/loose stools Neurologic: + paresthesia (left thigh ); no localized weakness and no generalized weakness Physical Exam Constitutional: no acute distress and no altered mental status ENMT: external ear and nose normal, oropharynx normal Respiratory: no respiratory distress Auscultation: + diminished lung sounds (airation today is the best it has been all week -- improved nicely ); no crackles and no wheezes Cardiovascular: Rate/Rhythm: regular rate and regular rhythm Heart Sounds: normal S1 and normal S2; no murmur Vessels: posterior tibial pulses present and dorsalis pedis pulses present; no JVD Extremities: + edema (resolved b/l legs ) Gastrointestinal (Abdomen): normal bowel sounds, soft, nontender, no hepatosplenomegaly Skin: no rashes, warm and dry Neurologic: moves all extremities; no focal motor deficits (strength b/l legs 5/5 including hip flexion & dorsiflexion/plantarflex feet) Psychiatric: A+Ox3, euthymic affect Results & Data Results & Data ([facility]) Vital Signs (Past 12 Hours) Vital Signs Temp Pulse Pulse Resp BP Pulse Ox 12/26/20 23:13 76 12/26/20 22:26 36.7 C 69 18 102/68 96 12/26/20 19:11 36.5 C 69 18 92/60 L 97 12/26/20 15:57 78 12/26/20 15:29 36.9 C 80 18 113/74 96 Laboratory Results Laboratory Results - last 24 hr 12/26/20 12/26/20 12/26/20 08:32 08:32 08:32 WBC 13.83 H RBC 3.89 L Hgb 10.6 L Hct 33.4 L MCV 85.9 MCH 27.2 MCHC 31.7 L RDW Std Deviation 50.5 H RDW Coeff of Megan 15.9 H Plt Count 255 MPV 10.7 H PT 25.3 H INR 2.7 H APTT 72.3 H* PTT Ratio 2.7 Sodium 136 Potassium 4.1 Chloride 103 Carbon Dioxide 27 Anion Gap 6.0 BUN 21 H Creatinine 0.85 Est Cr Clr Drug Dosing 119.2 Est GFR ( Amer) 121.1 Est GFR (Non-Af Amer) 104.5 BUN/Creatinine Ratio 24.5 H Glucose 103 H Calcium 8.8 PG Care Time/CCT Total # of Minutes Spent Total Time Spent with Patient: Total time spent is greater than 50% in coordination of care (as documented) at patient's floor/unit and/or counseling patient: Coding Level of Care Code 48586 Subseq Hosp Care Lvl 3 Diagnoses Lumbar radiculopathy, acute M54.16 Numbness of left anterior thigh R20.0 Pulmonary embolism I26.99 Acute cor pulmonale presence: unspecified Chronicity: acute Pulmonary embolism type: unspecified Pneumonia due to COVID-19 virus U07.1; J12.82 DVT (deep venous thrombosis) I82.402 Affected thrombotic vein of extremity: unspecified vein of extremity Chronicity: acute DVT location: lower extremity Laterality: left Elevated troponin R77.8 Peripheral vascular disease I73.9 History of seizures Z87.898 Cardiomyopathy I42.9 CAD (coronary artery disease) I25.10 (1) DVT (deep venous thrombosis) Affected thrombotic vein of extremity: unspecified vein of extremity Chronicity: acute DVT location: lower extremity Laterality: left Qualified Code(s): I82.402 - Acute embolism and thrombosis of unspecified deep veins of left lower extremity (2) Pulmonary embolism Acute cor pulmonale presence: unspecified Chronicity: acute Pulmonary embolism type: unspecified Qualified Code(s): I26.99 - Other pulmonary embolism without acute cor pulmonale
[2020-12-27 06:27] LABS: INR 3.3 (0.9-1.1); Prothrombin Time 30.2 Seconds (9.0-12.0)
[2020-12-27] MEDS: SENNA 8.6 MG TAB PO SCH (09:00)
[2020-12-27] MEDS: FAMOTIDINE 20 MG TAB PO SCH (09:00)
[2020-12-27] MEDS: GABAPENTIN 400 MG CAP PO SCH ×3 (09:01→21:25)
[2020-12-27] MEDS: METOPROLOL SUCC 25MG EXT REL TAB PO SCH (09:01)
[2020-12-27] MEDS: PANTOprazole 40 MG TAB PO SCH (09:01)
[2020-12-27] MEDS: ATORVASTATIN 40 MG TAB PO SCH (09:02)
[2020-12-27] MEDS: levETIRAcetam 500 MG TAB PO SCH ×2 (09:02→21:25)
[2020-12-27] MEDS: MoRPHine SULFATE CR 15 MG TABCR PO SCH ×2 (09:04→21:25)
[2020-12-27] MEDS: POLYETHYLENE (MIRALAX) 17 GM PACK PO SCH (09:04)
[2020-12-27] MEDS: FOLIC ACID 1 MG TAB PO SCH (09:04)
[2020-12-27] MEDS: DULoxetine HCL 20 MG CAP PO SCH (09:05)
[2020-12-27] MEDS: CLOPIDOGREL BISULFATE 75 MG TAB PO SCH (09:06)
[2020-12-27] MEDS: DOCUSATE SODIUM/SENNA 50/8.6MG TAB PO PRN (09:07)
[2020-12-27] MEDS: DOCUSATE SODIUM 100 MG CAP PO SCH ×2 (09:09→21:25)
[2020-12-27] MEDS: NICOTINE 14 MG/24 HR PATCH TD SCH (09:09)
[2020-12-27] MEDS: FUROSEMIDE 20 MG TAB PO SCH (09:20)
[2020-12-27] MEDS: ENOXAPARIN 80 MG/0.8 ML SYR SQ SCH ×2 (09:21→21:25)
[2020-12-27] MEDS: dexAMETHasone 1 MG TAB PO SCH (09:32)
[2020-12-27] MEDS: oxyCODONE/ACETAMINOPHEN 10-325 TAB PO PRN (12:47)
[2020-12-27] MEDS ORDERED: WARFARIN SOD 5 MG TAB PO ONE (16:00)
[2020-12-27] MEDS: MoRPHine SULFATE 10 MG/0.5 ML UDP PO PRN ×2 (17:31→23:42)
--- NOTE | 2020-12-27 22:20 | Hospitalist Progress Note ---
Date of Service December 27, 2020 Assessment & Plan (1) Lumbar radiculopathy, acute: Plan: stable on steroids & gabapentin. left-sided L3 nerve root compression 2nd to herniated disc. this is the cause of left thigh numbness and pain. CT pelvis without hematoma that would compress the femoral nerve. I have counseled him that the pain may take 1-2 weeks or longer to fully resolve, and that the numbness can take weeks-months to resolve. he has had no evidence of any motor compromise on physical exam. (2) Numbness of left anterior thigh: Plan: as above (3) Pulmonary embolism: Plan: 11/2020 - initial dx at [facility] extensive b/l o2 sats stable in RA pleurisy slowly improving (4) Pneumonia due to COVID-19 virus: Plan: stable no o2 requirement steroids for left L3 nerve root impingement likely helping his pneumonia no clinical worsening over his 10+ days in the hospital day #5 of 10 of steroids today (5) DVT (deep venous thrombosis): Plan: extensive b/l - initial dx 11/2020 [facility] s/p thrombectomies, b/l iliac venous stents, s/p IVC filter placement possible recurrent b/l DVTs while on eliquis at [facility] INR today 3.3 (INR goal 2.5 to 3.5) (6) Elevated troponin: Plan: myocardial demand ischemia (7) Peripheral vascular disease: Plan: iliac venous stents b/l - placed at [facility] for extensive b/l LE DVTs (8) History of seizures: Plan: none while here (9) Cardiomyopathy: Plan: ischemic EF 30% remains on BB and lasix DUSTY on hold 2nd to low BPs compensated (10) CAD (coronary artery disease): Plan: no ischemic symptoms remains on plavix, statin, BB this is likely combination of PEs, his COVID pneumonia, +/- pulmonary infarction EKG checked 2 days ago - no ischemic changes, no signs of pericarditis Plan: 1. continue increased extended release morphine 30mg BID. At his request will d/c the percocet and change to morphine elixir 10mg prn. Stop the IV morphine. 2. continue lovenox 1mg/kg bid his bridge. Needs 2 days of "overlap therapy." coumadin 5mg today, INR am. 3. Left L3 radiculopathy - cont decadron but change to 6mg PO daily. gabapentin 400 TID; cymbalta - increase to 40mg daily; pain meds as above. 4. low-normal BPs - holding DUSTY; lowered metoprolol to 12.5mg daily. lasix 20mg daily to keep euvolemic while on high-dose steroids. 5. cont bowel maintenance due to chronic narcotic usage. 6. cont PT, OT. Needs to mobilize more - staff encouraging him. attempted to call pt's father - Reyes Puente, - on 12/24 spoke with pt's sister and gave extensive update on 12/24 and then again today spoke with SW - accepted at [facility] if bed is available tomorrow can d/c to [facility] Admission and Anticipated Discharge Date Admission Date: December 16, 2020 Subjective tele overnight wnl patient upset that his morphine IV was discontinued he is also upset that we are using percocet and not morphine elixir, stating that "the people at rehab were giving the liquid [morphine] especially in the mornings" we had a lengthy discussion that there is a good chance he will transfer back to [facility] tomorrow and that we needed to transition off IV pain meds to ensure that his oral regimen was satisfactory for him I told him I was happy to d/c the percocet and change back to morphine elixir he denied any new complaints staff report he is still not mobilizing even with encouragement although he states he is using his flutter valve Review of Systems Respiratory: + pain on inspiration; no dyspnea Cardiovascular: as per Subjective / HPI; no orthopnea and no edema Gastrointestinal: no abdominal pain, no nausea, no vomiting and no constipation Neurologic: + paresthesia (left thigh, with mild pain-- no change ) Psychiatric: + irritability Physical Exam Constitutional: no acute distress and no altered mental status ENMT: external ear and nose normal, oropharynx normal Respiratory: no respiratory distress Auscultation: + diminished lung sounds (airation similar to yesterday ); no crackles and no wheezes Cardiovascular: Rate/Rhythm: regular rate and regular rhythm Heart Sounds: normal S1 and normal S2; no murmur Vessels: posterior tibial pulses present and dorsalis pedis pulses present; no JVD Extremities: no edema Gastrointestinal (Abdomen): normal bowel sounds, soft, nontender, no hepatosplenomegaly Skin: no rashes, warm and dry Psychiatric: Orientation: alert and oriented x 3 Affect: + angry affect Results & Data Results & Data ([facility]) Vital Signs (Past 12 Hours) Vital Signs Temp Pulse Pulse Resp BP BP Pulse Ox 12/27/20 20:47 36.8 C 74 18 100/65 98 12/27/20 15:27 36.9 C 18 104/70 97 12/27/20 14:53 36.4 C L 77 18 107/76 97 12/27/20 14:20 78 12/27/20 12:45 36.5 C 74 18 97/65 L 98 Laboratory Results Laboratory Results - last 24 hr 12/27/20 05:39 PT 30.2 H INR 3.3 H PG Care Time/CCT Total # of Minutes Spent Total Time Spent with Patient: Total time spent is greater than 50% in coordination of care (as documented) at patient's floor/unit and/or counseling patient: Coding Level of Care Code 80365 Subseq Hosp Care Lvl 3 Diagnoses Lumbar radiculopathy, acute M54.16 Numbness of left anterior thigh R20.0 Pulmonary embolism I26.99 Acute cor pulmonale presence: unspecified Chronicity: acute Pulmonary embolism type: unspecified Pneumonia due to COVID-19 virus U07.1; J12.82 DVT (deep venous thrombosis) I82.402 Affected thrombotic vein of extremity: unspecified vein of extremity Chronicity: acute DVT location: lower extremity Laterality: left Elevated troponin R77.8 Peripheral vascular disease I73.9 History of seizures Z87.898 Cardiomyopathy I42.9 CAD (coronary artery disease) I25.10 (1) DVT (deep venous thrombosis) Affected thrombotic vein of extremity: unspecified vein of extremity Chronicity: acute DVT location: lower extremity Laterality: left Qualified Code(s): I82.402 - Acute embolism and thrombosis of unspecified deep veins of left lower extremity (2) Pulmonary embolism Acute cor pulmonale presence: unspecified Chronicity: acute Pulmonary embolism type: unspecified Qualified Code(s): I26.99 - Other pulmonary embolism without acute cor pulmonale
[2020-12-28] MEDS: MoRPHine SULFATE 10 MG/0.5 ML UDP PO PRN ×2 (05:35→09:41)
[2020-12-28 07:20] LABS: INR 2.3 (0.9-1.1); Prothrombin Time 21.7 Seconds (9.0-12.0)
[2020-12-28 07:22] LABS: Hematocrit (blood only) 34.1 % (42-52); Hemoglobin 10.8 g/dL (14.0-18.0); Mean Corpuscular Hemoglobin 26.4 pg (25-34); Mean Corpuscular Hgb Conc 31.7 g/dL (32-36); Mean Corpuscular Volume 83.4 fL (80-100); Mean Platelet Volume 10.4 fL (7.4-10.4); Platelet Count 253 K/uL (130-400); RDW Coefficient of Variation 15.7 % (11.5-14.5); Red Blood Count 4.09 M/uL (4.7-6.1); White Blood Count 13.87 K/uL (4.8-10.8)
[2020-12-28 07:39] LABS: BUN Creatinine Ratio 25.1 (10-20); Calcium 8.9 mg/dl (8.5-10.1); Creatinine Clr Calc Pharmacy 119.2 ml/min; Est GFR (African American) 121.1 ml/min; Est GFR (Non-African American) 104.5 ml/min; Magnesium 2.1 mg/dl (1.8-2.4); Potassium 3.8 mmol/L (3.5-5.1)
[2020-12-28] MEDS: levETIRAcetam 500 MG TAB PO SCH (08:15)
[2020-12-28] MEDS: MoRPHine SULFATE CR 15 MG TABCR PO SCH (08:15)
[2020-12-28] MEDS: FUROSEMIDE 20 MG TAB PO SCH (08:15)
[2020-12-28] MEDS: ATORVASTATIN 40 MG TAB PO SCH (08:15)
[2020-12-28] MEDS: PANTOprazole 40 MG TAB PO SCH (08:16)
[2020-12-28] MEDS: CLOPIDOGREL BISULFATE 75 MG TAB PO SCH (08:16)
[2020-12-28] MEDS: FOLIC ACID 1 MG TAB PO SCH (08:16)
[2020-12-28] MEDS: FAMOTIDINE 20 MG TAB PO SCH (08:16)
[2020-12-28] MEDS: SENNA 8.6 MG TAB PO SCH (08:17)
[2020-12-28] MEDS: dexAMETHasone 1 MG TAB PO SCH (08:17)
[2020-12-28] MEDS: POLYETHYLENE (MIRALAX) 17 GM PACK PO SCH (08:19)
[2020-12-28] MEDS: METOPROLOL SUCC 25MG EXT REL TAB PO SCH (08:19)
[2020-12-28] MEDS: NICOTINE 14 MG/24 HR PATCH TD SCH (08:20)
[2020-12-28] MEDS ORDERED: DULoxetine HCL 20 MG CAP PO SCH (09:00)
[2020-12-28] MEDS: DOCUSATE SODIUM 100 MG CAP PO SCH (09:40)
[2020-12-28] MEDS: ENOXAPARIN 80 MG/0.8 ML SYR SQ SCH (09:40)
[2020-12-28] MEDS: GABAPENTIN 400 MG CAP PO SCH ×2 (09:41→13:51)
--- NOTE | 2020-12-28 12:51 | Discharge Summary ---
Date of Service date of admission - December 16, 2020 date of discharge - December 28, 2020 Admission HPI Per Admitting Provider Dmitry Puente is a 45yo male with history of prior DVT, Seizures and PE presenting with extensive LLE DVT and bilateral PEs. Patient has a history of prior DVT and PE - presently on Eliquis anticoagulation. He has been at [facility] for rehab. He developed pain and tingling in the LLE and was sent to the ER. Patient states that he had a thrombectomy performed at [facility] 2 weeks ago. Has multiple clots in the past. Has IVC filter in place. No known family history of blood clots. No prior hypercoag workup to his knowledge ER Course: Heparin gtt, NSS Principal Diagnosis 1. LLE DVT - recurrent. 2. Bilateral pulmonary emboli. 3. COVID-19 pneumonia. Initial COVID test positive on 12/16/20. 4. Pleuritic chest pain 2nd to #2 and #3. 5. Left-sided L3 radiculopathy 2nd to herniated disc. 6. Ischemic cardiomyopathy - EF 25-30%. Discharge Exam Constitutional no acute distress and no altered mental status ENMT external ear and nose normal, oropharynx normal Respiratory no respiratory distress Auscultation: + diminished lung sounds (airation similar to yesterday ); no crackles and no wheezes Cardiovascular Rate/Rhythm: regular rate and regular rhythm Heart Sounds: normal S1 and normal S2; no murmur Vessels: posterior tibial pulses present and dorsalis pedis pulses present; no JVD Extremities: no edema Gastrointestinal (Abdomen) normal bowel sounds, soft, nontender, no hepatosplenomegaly Inspection/Auscultation: + abdomen distended (mild) Skin no rashes, warm and dry Neurologic moves all extremities; no focal motor deficits (strength b/l legs 5/5 including hip flexion & dorsiflexion/plantarflex feet) Psychiatric Orientation: alert and oriented x 3 Discharge Data Allergies Allergy/AdvReac Type Severity Reaction Status Date / Time No Known Allergies Allergy Unverified 12/16/20 20:28 [place] [facility] [place] PT, OT Procedures Performed echocardiogram: * moderately dilated left ventricle with EF 25-30% * akinesis of anteroseptum, mid-distal anterior, mid-distal anterolateral, mid inferolateral wall segments * aneurysmal apex * no apical thrombus * no LVH * normal RV size and function * normal PA pressure * normal valve function Ordered Studies Chest X-Ray 12/16/20 16:44 SINGLE VIEW CHEST CLINICAL HISTORY: Atypical chest pain. FINDINGS: 2 AP, portable, upright chest radiographs are obtained. No prior studies are available for comparison at the time of dictation. The examination is degraded by portable technique and patient rotation. The cardiac silhouette appears enlarged. There is pulmonary vascular congestion. The patchy airspace opacities are seen throughout both lungs. No large pleural effusion or pneumothorax is seen. The bony thorax is grossly intact. IMPRESSION: 1. The cardiac silhouette appears enlarged and there is pulmonary vascular congestion. 2. Patchy airspace opacities are seen throughout both lungs. This could represent pulmonary edema and/or multifocal pneumonia. Clinical correlation will be essential. Radiographic follow-up to resolution is recommended. ACT 112: Negative or not required by law. Electronically signed by: Angelo Chacko M.D. 12/16/2020 5:18 PM Venous Doppler Study 12/16/20 16:48 ULTRASOUND LEFT LOWER EXTREMITY VENOUS CLINICAL HISTORY: Left leg pain. COMPARISON STUDY: No priors. TECHNIQUE: Real-time, grayscale, and color Doppler sonography of the deep veins of the left lower extremity was performed from the inguinal crease to the calf. Compression and augmentation were utilized. FINDINGS: There is occlusive deep venous thrombosis seen extending from the proximal left superficial femoral vein distally to the calf. The common femoral vein is patent and normally compressible. The greater saphenous vein and the profunda femoris vein at the junction with the common femoral vein are clear. IMPRESSION: Extensive and occlusive deep venous thrombosis is seen throughout the left lower extremity is above. ACT 112: Negative or not required by law. Electronically signed by: Angelo Chacko M.D. 12/16/2020 5:43 PM Chest CTA 12/16/20 17:46 CT ANGIOGRAM OF THE CHEST CLINICAL HISTORY: Dyspnea. COMPARISON STUDY: Chest x-ray dated 12/16/2020. TECHNIQUE: Following the IV administration of 119 cc of Optiray 320, CT angiogram of the chest was performed from the upper abdomen to the thoracic inlet utilizing the pulmonary embolus protocol. Images are reviewed in the axial, sagittal, and coronal planes. 3-D MIPS images are created and assessed. IV contrast was administered without complication. A dose lowering technique was utilized adhering to the principles of ALARA. CT DOSE: 739.05 mGy.cm FINDINGS: Thyroid: Imaged portions of the thyroid gland are normal in size and attenuation. Thoracic aorta: The thoracic aorta is normal in caliber and demonstrates standard 3-vessel arch anatomy. The thoracic aorta is not well opacified. Pulmonary vasculature: The pulmonary trunk is normal in caliber. There is extensive thrombus within the right lower lobe pulmonary artery. This extends into segmental and subsegmental branches. Significant segmental and subsegmental pulmonary emboli are seen within branches of the left upper lobe pulmonary artery. Segmental and subsegmental pulmonary emboli are seen within branches of the left lower lobe pulmonary artery. Heart: The heart is enlarged and without pericardial effusion. A left coronary artery stent is in place. Lungs and pleural spaces: Evaluation of the lung parenchyma is significantly degraded by motion artifact. The trachea and central airways are clear. No pl eural effusion is identified. There is diffuse intralobular septal thickening. There are foci of nodular subpleural airspace consolidation seen throughout both lungs. Mediastinum: There is mediastinal lymphadenopathy. Prevascular nodes measure up to 13 mm in short axis. Francisca: There is hilar adenopathy. Hilar nodes measure up to 13 mm in short axis. Axillae: There is no axillary lymphadenopathy. Upper abdomen: Partially visualized upper abdominal viscera is within normal limits. Skeletal structures: No lytic or blastic bony lesions are seen. Advanced arthritic change is noted in the shoulders. IMPRESSION: 1. Extensive bilateral pulmonary emboli as above, greatest in the right lower lobe pulmonary artery. 2. Cardiomegaly with evidence of congestive failure. 3. There are numerous foci of nodular subpleural consolidation scattered throughout both lungs. These are indeterminant, and several likely represent pulmonary infarcts given the degree of thrombus. Correlate clinically for evidence of an infectious/inflammatory pneumonitis. A follow-up chest CT in 3 months time is recommended to document resolution and to exclude underlying pulmonary lesion. 4. No pleural effusion is identified. 5. Mediastinal and hilar lymphadenopathy is nonspecific and may be reactive. This can also be reassessed at follow-up. ACT 112: Positive. There are findings on this exam that require communication between the performing entity and the patient following Patient Test Result Information Act ([place] Act 112) guidelines. Electronically signed by: Angelo Chacko M.D. 12/16/2020 7:[address] 12/22/20 18:36 CT pelvis w/IV con only CLINICAL HISTORY: L thigh numbness; ?L fem nerve compression? COMPARISON STUDY: No previous studies for comparison. TECHNIQUE: Axial images of the pelvis were obtained following intravenous injection of 90 cc of Optiray 320 IV. Automated exposure control was utilized for the study. A dose lowering technique was utilized adhering to the principles of ALARA. FINDINGS: Visualized portions of the inferior kidneys are unremarkable. The caliber and wall thickness of visualized small and large bowel are normal. The appendix is normal. There may be a small fat-containing right inguinal hernia. No pelvic hematoma or mass is identified. There is subtle subcutaneous stranding of the left groin which likely reflects postsurgical change. Bilateral iliac vein stents are in place. Patency is difficult to assess given phase of enhancement on this exam but these appear grossly patent. No pseudoaneurysm is identified within the groin. There is no lymphadenopathy. No acute fracture or suspicious lesion is identified within the visualized skeletal structures. IMPRESSION: 1. No pelvic or groin hematoma or mass. 2. Bilateral iliac vein stents in place. Patency difficult to assess given phase of enhancement but likely patent. 3. Mild subcutaneous stranding of the left groin which is likely postsurgical. ACT 112: Negative or not required by law. Electronically signed by: Richie Hanna M.D. 12/22/2020 8:07 PM Orbit X-Ray 12/23/20 09:32 ORBIT RADIOGRAPHS 3 VIEWS HISTORY: pre-MRI screening. COMPARISON: None. FINDINGS: There are no radiopaque foreign bodies identified within the orbits. IMPRESSION: No radiopaque foreign bodies identified within the orbits. ACT 112: Negative or not required by law. Electronically signed by: Colin Burrows M.D. 12/23/2020 7:08 PM Lumbar Spine MRI 12/23/20 10:13 MR lumbar spine wo con CLINICAL HISTORY: Left-sided L2-3 radiculopathy. TECHNIQUE: Sagittal and axial T1, T2 and STIR images were obtained. COMPARISON STUDY: No previous studies for comparison. OBSERVATIONS: The vertebral bodies and posterior elements appear intact. There is no abnormal bony signal present to suggest a marrow replacement process. L1-2: There is disc desiccation. There is a circumferential disc bulge. There is no significant spinal or foraminal stenosis L2-3: There is disc desiccation. There is a circumferential disc bulge. There is mild spinal stenosis. There is no significant foraminal narrowing L3-4: There is disc degeneration. There is a circumferential disc bulge. Addition there is an extra foraminal left lateral disc bulge/protrusion which abuts the left L3 nerve root. There is no significant spinal stenosis. There is mild bilateral foraminal narrowing L4-5: There is a circumferential disc bulge. There is mild spinal canal narrowing. There is no significant foraminal narrowing L5-S1: There is a circumferential disc bulge. There is no significant spinal stenosis. There is moderate left-sided foraminal narrowing. The conus medullaris and cauda equina appear normal. IMPRESSION: 1. Moderate multilevel spondylytic changes 2. Multilevel disc bulges with mild spinal stenosis at the L2-3, and L4-5 levels 3. Moderate left-sided foraminal narrowing at the L5-S1 level, and mild bilateral foraminal narrowing at the L3-4 level. 4. Small left-sided extraforaminal disc bulge/protrusion on the left at the L3-4 level. This abuts but does not significantly displace the left L3 nerve root ACT 112: Negative or not required by law. Electronically signed by: Colin Burrows M.D. 12/23/2020 8:26 PM Chest X-Ray 12/23/20 11:40 XR chest 2V PA/lateral CLINICAL HISTORY: COVID-19 pneumonia with PEs COMPARISON STUDY: 12/16/2020 FINDINGS: The heart is mildly enlarged. There are multifocal airspace opacities with a peripheral distribution consistent with a multifocal pneumonia. The findings are slightly progressive when compared the prior study. There is minor blunting of the right lateral costophrenic angle.[ IMPRESSION: 1. Cardiomegaly 2. Multifocal airspace opacities consistent with a multifocal pneumonia, slightly progressive when compared the prior 12/16/2020 study 3. Trace right pleural effusion ACT 112: Negative or not required by law. Electronically signed by: Colin Burrows M.D. 12/23/2020 7:15 PM Hospital Course (1) Lumbar radiculopathy, acute: One of the patient's main complaints outside of his cardiopulmonary issues was that of left leg numbness and pain. Pelvic CT did NOT show femoral nerve compression from a hematoma from his recent thrombectomy procedure in [place]. MRI lumbar spine showed left-sided L3 nerve root compression 2nd to a herniated disc. This was the cause of his left thigh numbness and pain. The following medications were employed while here - * dexamethasone (used concurrently for his COVID-19 pneumonia) * gabapentin 400mg TID * cymbalta 40mg daily (was titrated from 20 to 40mg while here) * extended release morphine 30mg BID (had been 15mg BID) * morphine elixir as needed I counseled him that the pain may take 1-2 weeks or longer to fully resolve, and that the numbness can take weeks-months to resolve. He never had evidence of any motor compromise on physical exam during the hospitalization. (2) Numbness of left anterior thigh: as above in #1 (3) Pulmonary embolism: 11/2020 - initial dx at [facility] of extensive, b/l PEs. CTA chest here again demonstrated numerous b/l PEs along with probable COVID-19 pneumonia (and/or pulmonary infarcts). o2 sats were largely stable in RA while here. He often used NC O2 for symptom control, however. He had significant pleuritic chest discomfort throughout his stay treated with pain meds scheduled and prn. (4) Pneumonia due to COVID-19 virus: Steroids for left L3 nerve root impingement likely helped his COVID-19 pneumonia. He did not have any clinical worsening over his 10+ days in the hospital. He received 6 days of steroids while hospitalized, and will complete 4 more days upon transfer to [facility]. Recommend that he follow-up with pulmonary in [place] after his discharge from [facility] given the extent of his PEs, pneumonia, possible pulmonary infarcts, etc. He did not receive Remdesivir treatment or tocilizumab therapy. (5) DVT (deep venous thrombosis): extensive b/l - initial dx 11/2020 [facility]. s/p thrombectomies, b/l iliac venous stents, and IVC filter placement at [place] during his November 2020 stay. It is suspected that he may have had recurrent b/l DVTs while on Eliquis at [facility]. He was initiated on heparin infusion and ultimately coumadin. He was seen in consult by Dr Pradip Magana, hematology/oncology, who advised INR goal of 2.5 to 3.5. Lifelong anticoagulation recommended. Hypercoagulable work-up - Factor V Leiden mutation, prothrombin gene mutation, etc - were all negative/normal. INR on 12/28/20 - day of discharge - was 2.3. His heparin infusion was transitioned to lovenox injections prior to discharge. Recommend at least 2 days of "overlap therapy" with lovenox once INR is between 2.5 and 3.5. Coumadin dose at discharge -- 7.5mg daily. (6) Elevated troponin: Likely myocardial demand ischemia in the setting of his COVID-19 pneumonia, PEs, etc. ACS not suspected. Peak troponin was 0.6. (7) Peripheral vascular disease: iliac venous stents b/l - placed at [facility] for extensive b/l LE DVTs. follow-up with vascular surgery in [place] following his admission at [facility]. (8) History of seizures: none while here. continue keppra 500mg BID as previous. (9) Cardiomyopathy: ischemic cardiomyopathy, EF 25-30% remains on BB and lasix DUSTY on hold 2nd to low BPs compensated throughout his stay he will need daily weights, salt & fluid restriction, etc at [facility] and at his home follow-up with cardiology in [place] (10) CAD (coronary artery disease): no ischemic symptoms during the visit. remains on plavix, statin, BB. he complained of frequent pleuritic chest pain - likely combination of PEs, his COVID pneumonia, +/- pulmonary infarction. EKGs showed no ischemic changes, no signs of pericarditis. Total Time Total Time Spent Total Time Spent (In Minutes): 45 Total Time Includes: Examination of the Patient, Discharge Planning, Medication Reconciliation and Communication With Other Providers Discharge Plan Discharge Items Patient Disposition: Transfer Inpatient Rehab Fac Reason For Visit: LLE DVT; Pulmonary Emboli; COVID-19 Discharge Diagnosis: 1. LLE DVT - recurrent. 2. Bilateral pulmonary emboli. 3. COVID-19 pneumonia. Initial COVID test positive on 12/16/20. 4. Pleuritic chest pain 2nd to #2 and #3. 5. Left-sided L3 radiculopathy 2nd to herniated disc. 6. Ischemic cardiomyopathy - EF 25-30%. 7. h/o seizures - none during this stay. Condition on Discharge: Fair Activity: Resume your previous activity Weightbearing: Full weightbearing Non-emergency contact: Primary Care Provider and Specialist Call non-emergency contact if: you have any medication questions, your symptoms worsen, your pain is not controlled, your pain is worsening and you have a fever Follow-up/Referrals: Lucero Bunch MD [Primary Care Provider] - (see PCP within a week of discharge from [facility] ) Diet: Heart Healthy Fluids: 1800ml (7 cups) Ulises Attending Provider Instructions: Mr Puente was treated for the problems listed above in "discharge diagnoses." Recommendations - 1. daily INR starting 12/29/20. 2. lovenox BID until INR is consistently 2.5 to 3.5 and at the discretion of medical terminologist. 3. NC O2 prn, maintain O2 sats >92%. 4. aggressive pulmonary toilet with incentive spirometry and flutter valve. 5. consideration of colchicine once daily for pleuritic pain/trace pericardial effusion on CT chest. 6. daily standing scale weights. Notify MD of any weight gain of more than 2-3 pounds in 1-2 days. 7. strongly recommend that he see the following specialists after his [facility] stay - * cardiology - for ischemic cardiomyopathy * pulmonary - for COVID19 pneumonia and PEs * orthopedics and/or pain management for L3 radiculopathy * psychiatry - for depression * coumadin clinic - will need lifelong coumadin; INR goal 2.5 to 3.5 * vascular surgery at [facility] - this group performed IVC Filter placement, b/l leg thrombectomies, etc 8. CBC, BMP, and mag in 2-3 days for stability. 9. consider psychology consult while at [facility]. Addtl Patient Account Liaison Provider Instructions: Warfarin (coumadin) Instructions: * Warfarin is a medicine prescribed to prevent blood clots * Warfarin will thin your blood and help prevent new clots * Take your medications exactly as directed * Never skip a dose. Never take a double dose. If you miss a dose, take it as soon as you remember * It is important for your doctor to monitor your INR. This is a lab test. Your INR goal is 2.5 to 3.5. * Keep your appointment for lab tests. Risk of Adverse Drug Reactions and Interactions: * Warfarin increases your risk of bleeding * The food you eat and other medications you take can affect how Warfarin works in your body * Know that alcohol interacts significantly with Warfarin; we recommend no consumption of alcohol, if possible, while on Warfarin * It is very important to talk with your doctor about all of the other medicines, antibiotics, vitamins or herbal products that you are taking * All of your medication must be approved by your doctor, including new me dicines, as well as medicines you have taken before you started taking Warfarin Diet: * In order for Warfarin to work properly, it is important to keep your intake of Vitamin K as consistent as possible * You should avoid any sudden change in Vitamin K intake * Know * Report any significant changes in your diet or weight to your doctor Call your Primary Care doctor if you experience any of the following: * Swelling or Pain in your leg * Sudden, continuous pain deep in a muscle * Pain that worsens when you are active or when you stand still for a long time * Chest Pain * Sudden Shortness of Breath * Rapid or pounding heart beat * Fainting * Dizziness * Cough with blood or bloody sputum * Sweating more than normal * Bruises * Heavy or uncontrolled bleeding * Blood in your urine, stool or vomit * Black or tarry stools * Heavy nose bleeding Caring for Your Self at Home: * Avoid sitting, standing or lying down for long periods without moving your legs and feet * When traveling by car, stop to get out and move around at least once every 3 hours * On long airplane, train or bus rides, get up and move around when possible * If you can't get up, wiggle your toes and tighten your calves to keep your blood moving Follow Up: It is important for you to keep your follow up appointments with your medical provider. Pending Studies at Discharge: No Stand-Alone Forms: My [facility] Skilled Items Patient informed of condition?: Yes DNR: No Discharge Level of Care: Acute rehab Communicable Disease: Yes Discharge Prognosis: Stable Lines: None Urinary Catheter: No Medications and DC Order Prescriptions: New albuterol sulfate [Ventolin HFA] 90 mcg/actuation Hfa Aerosol Inhaler 2 puff inhalation Q4H PRN (Reason: cough, wheeze, shortness of breath ) Qty: 6.7 RF: 0 enoxaparin [Lovenox] 80 mg/0.8 mL Syringe 80 mg subcut Q12H Qty: 8 RF: 0 sennosides [Senokot] 8.6 mg Tablet 17.2 mg PO QAM Qty: 60 RF: 0 warfarin 5 mg tablet 7.5 mg PO DAILY Qty: 60 RF: 0 Continued atorvastatin 40 mg Tablet 40 mg PO DAILY RF: 0 acetaminophen [Tylenol] 325 mg Tablet 650 mg PO Q4 PRN (Reason: Pain) RF: 0 nicotine 14 mg/24 hr Patch 24 Hour 1 patch TRANSDERMAL DAILY RF: 0 levetiracetam 500 mg Tablet 500 mg PO Q12H RF: 0 thiamine HCl (vitamin B1) 100 mg Tablet 100 mg PO DAILY RF: 0 clopidogrel [Plavix] 75 mg Tablet 75 mg PO DAILY RF: 0 famotidine 20 mg Tablet 20 mg PO DAILY RF: 0 magnesium hydroxide [Milk of Magnesia] 400 mg/5 mL Suspension 30 ml PO DAILY PRN (Reason: Constipation) RF: 0 pantoprazole 40 mg Tablet,Delayed Release (Dr/Ec) 40 mg PO DAILY RF: 0 lidocaine [Lidoderm] 5 % Adhesive Patch,Medicated 1 patch TOPICAL DAILY RF: 0 morphine 10 mg/5 mL Solution 10 mg PO Q4H PRN (Reason: Pain) RF: 0 folic acid 1 mg Tablet 1 mg PO DAILY RF: 0 furosemide [Lasix] 20 mg Tablet 20 mg PO DAILY PRN (Reason: wt gain 3 lbs.) RF: 0 docusate sodium 100 mg Tablet 100 mg PO BID RF: 0 Changed polyethylene glycol 3350 [Miralax] 17 gram Powder In Packet 17 g PO DAILY Qty: 0 RF: 0 gabapentin 300 mg Capsule 400 mg PO TID Qty: 0 RF: 0 metoprolol succinate 25 mg tablet extended release 24 hr 12.5 mg PO DAILY Qty: 0 RF: 0 morphine 15 mg Tablet 30 mg PO Q12 Qty: 0 RF: 0 duloxetine 20 mg Capsule,Delayed Release(Dr/Ec) 40 mg PO DAILY Qty: 0 RF: 0 Discontinued sennosides-docusate sodium [Senokot-S] 8.6-50 mg Tablet 1 tab-cap PO DAILY PRN (Reason: Constipation) RF: 0 Eliquis 5 mg tablet 5 mg PO Q12 RF: 0 Discharge Orders: Discharge Order (Routine); Ordered 12/28/20 Ordered By: Kevin Chauhan Admission Data Admit Date/Time: 12/16/20 21:49 Attending Provider: Kevin Chauhan Admit Provider: Karen Smith Primary Care Provider: Lucero Bunch Other Providers: Arabella Macdonald ; Pradip Magana V. Other Interventions: Discharge Summary Assessment (RN) Last Done: 12/28/20 13:39 Coding Level of Care Code D/C DAY MANAGEMENT >30 MINS Diagnoses Lumbar radiculopathy, acute M54.16 Numbness of left anterior thigh R20.0 Pulmonary embolism I26.99 Acute cor pulmonale presence: unspecified Chronicity: acute Pulmonary embolism type: unspecified Pneumonia due to COVID-19 virus U07.1; J12.82 DVT (deep venous thrombosis) I82.402 Affected thrombotic vein of extremity: unspecified vein of extremity Chronicity: acute DVT location: lower extremity Laterality: left Elevated troponin R77.8 Peripheral vascular disease I73.9 History of seizures Z87.898 Cardiomyopathy I42.9 CAD (coronary artery disease) I25.10
[2020-12-28] MEDS ORDERED: WARFARIN SOD 10 MG TAB PO ONE (16:00)
== END 2020-12-28 14:30 | DRG 175 ==
LOC: ED 16:29 → 2E 21:49 → SUATTDRO 21:49 → 2E 22:58 → 2W 12-19 16:26
DX: I73.9 Peripheral vascular disease, unspecified; Z79.899 Other long term (current) drug therapy; I26.99 Other pulmonary embolism without acute cor pulmonale; I82.402 Acute embolism and thrombosis of unspecified deep veins of left lower extremity; Z95.5 Presence of coronary angioplasty implant and graft; Z90.49 Acquired absence of other specified parts of digestive tract; Z98.890 Other specified postprocedural states; Z87.891 Personal history of nicotine dependence; M51.16 Intervertebral disc disorders with radiculopathy, lumbar region; J12.82 Pneumonia due to coronavirus disease 2019; I25.5 Ischemic cardiomyopathy; I25.2 Old myocardial infarction; I24.8 Other forms of acute ischemic heart disease; Z86.69 Personal history of other diseases of the nervous system and sense organs; Z79.02 Long term (current) use of antithrombotics/antiplatelets; Z79.01 Long term (current) use of anticoagulants; I25.10 Atherosclerotic heart disease of native coronary artery without angina pectoris; Z95.820 Peripheral vascular angioplasty status with implants and grafts; I95.89 Other hypotension; U07.1 COVID-19